=== PATIENT | male | born 1965 | race Caucasian/White ===

== ENCOUNTER 2017-08-11 15:30 | Outpatient (CLI) | payer BC, OTHER ==
[~2017-08-11] VITALS: Ht 182.9 cm; Wt 108.0 kg
[~2017-08-11 15:30] MED LIST: HYDR-2889 PO; LEVO125T6 PO
[2017-08-11] MEDS ORDERED: LEVO175T5 PO (15:41)
[2017-08-11 16:28] LABS: BASOPHILS % (AUTO) 0 % (0-10); EOSINOPHILS # (AUTO) 0.2 10^3/uL (0.0-0.3); EOSINOPHILS % (AUTO) 3 % (0-10); LYMPHOCYTES # (AUTO) 2.7 X 10^3 (1.0-4.0); LYMPHOCYTES % (AUTO) 40 % (12-44); MEAN CORPUSCULAR HEMOGLOBIN 31 PG (25-34); MEAN CORPUSCULAR HGB CONC 35 G/DL (32-36); MEAN CORPUSCULAR VOLUME 87 FL (80-99); MEAN PLATELET VOLUME 11.1 FL (7.4-10.4); MONOCYTES # (AUTO) 0.5 X 10^3 (0.0-1.0); MONOCYTES % (AUTO) 7 % (0-12); NEUTROPHILS # (AUTO) 3.2 X 10^3 (1.8-7.8); NEUTROPHILS % (AUTO) 49 % (42-75); PLATELET COUNT 206 10^3/uL (130-400); RED BLOOD COUNT 4.61 10^6/uL (4.35-5.85); RED CELL DISTRIBUTION WIDTH 12.9 % (10.0-14.5); WHITE BLOOD COUNT 6.6 10^3/uL (4.3-11.0)
[2017-08-11 16:29] VITALS: BP 148/89
--- NOTE | 2017-08-11 16:29 | Diagnostic Imaging Report ---
PA and lateral views of the chest Indication: Preoperative evaluation. Findings: The lungs are clear. The heart size is normal. There is no effusion or pneumothorax The mediastinum and kelsey appear unremarkable. Impression: Unremarkable study. Dictated by: Dictated on workstation # [id number]
[2017-08-11 16:39] LABS: BILIRUBIN,URINE NEGATIVE (NEGATIVE); KETONES,URINE NEGATIVE (NEGATIVE); LEUKOCYTE ESTERASE ,URINE NEGATIVE (NEGATIVE); NITRITE,URINE NEGATIVE (NEGATIVE); PH,URINE 5 (5-9); PROTEIN,URINE NEGATIVE (NEGATIVE); UROBILINOGEN,URINE NORMAL (NORMAL)
[2017-08-11 16:46] LABS: ALANINE AMINOTRANSFERASE 16 U/L (0-55); ALBUMIN 4.3 GM/DL (3.2-4.5); ANION GAP 8 MMOL/L (5-14); ASPARTATE AMINO TRANSFERASE 17 U/L (5-34); BILIRUBIN,TOTAL 0.4 MG/DL (0.1-1.0); BLOOD UREA NITROGEN 12 MG/DL (7-18); BUN/CREATININE RATIO 14; CARBON DIOXIDE 28 MMOL/L (21-32); CHLORIDE 104 MMOL/L (98-107); CREATININE SERUM 0.86 MG/DL (0.60-1.30); GFR ESTIMATED > 60; GLUCOSE 100 MG/DL (70-105); POTASSIUM 3.8 MMOL/L (3.6-5.0); SODIUM 140 MMOL/L (135-145); TOTAL PROTEIN 7.3 GM/DL (6.4-8.2)
[2017-08-11 17:00] LABS: SQUAMOUS EPITHELIAL CELL,UR RARE /HPF
[2017-08-11 17:24] LABS: ERYTHROCYTE SEDIMENTATION RATE 5 MM/HR (0-30)
== END 2017-08-11 16:25 | disposition home or self-care (01) ==
LOC: PREOP 15:30
PROVIDERS: ATTEND Orthopaedic Surgery
DX: Z01.818 Encounter for other preprocedural examination (principal); Z01.812 Encounter for preprocedural laboratory examination; M17.11 Unilateral primary osteoarthritis, right knee; R53.83 Other fatigue
CPT/HCPCS: 36415; 71020; 80053; 81000; 85025; 85610; 85652; 86850; 86900; 86901; 87081

== ENCOUNTER 2017-08-17 06:00 | Inpatient (IN) | payer BC, OTHER ==
--- NOTE | 2017-08-08 13:07 | HISTORY AND PHYSICAL ---
DATE OF SERVICE: ADMISSION HISTORY AND PHYSICAL DATE OF ADMISSION: 08/17/2017 LAST-FOUR SOCIAL SECURITY: 0582 REASON FOR ADMISSION: Inpatient admission on 08/17/2017 for right total knee arthroplasty. HISTORY OF PRESENT ILLNESS: The patient is a 51-year-old gentleman with known osteoarthritis of his right knee. He has undergone treatment with multiple arthroscopies as well as injections. He reports progressive loss of function and activities of daily living because of the knee. Radiographs reveal complete loss of medial and patellofemoral joint spaces and due to functional impairment and failure to improve with conservative measures, the patient has elected to proceed with surgical intervention. REVIEW OF SYSTEMS: No chest pain. No shortness of breath. No dysuria. PAST MEDICAL HISTORY: Hypothyroidism and osteoarthritis. PAST SURGICAL HISTORY: Arthroscopy and left rotator cuff repair. FAMILY HISTORY: Significant for diabetes and kidney disease. MEDICATIONS: Hydrocodone. PRIMARY CARE PROVIDER: ____. ADDITIONAL MEDICATIONS: Levothyroxine. ALLERGIES: No known drug allergies. SOCIAL HISTORY: The patient is a former smoker. Denies alcohol use. PHYSICAL EXAMINATION: GENERAL: The patient is well developed, well-nourished, in no acute distress. HEENT: Normocephalic, atraumatic. Pupils are equal, round, reactive to light. Oropharynx is clear. NECK: Supple. No lymphadenopathy. LUNGS: Clear to auscultation bilaterally. HEART: Regular rate and rhythm. ABDOMEN: Soft, nontender, nondistended. EXTREMITIES: The right knee demonstrates a slight effusion. There is no erythema or warmth. No skin lesions are noted. Range of motion 0/3/130 with no varus valgus laxity. Negative anterior and posterior drawer. The patient ambulates with an antalgic gait. RADIOGRAPHS: As above. IMPRESSION: Right knee osteoarthritis, unresponsive to conservative measures. PLAN: Right total knee arthroplasty. The risks, benefits, options, ramifications and recovery have been discussed at length with the patient. He understands and wishes to proceed. Job ID: [id number] DocumentID: [id number] Dictated Date: 08/08/2017 11:21:31 Pump Rebuilder Date: 08/08/2017 11:52:33 Dictated By: EFRAIN JUAREZ MD
[~2017-08-17] VITALS: Ht 182.9 cm; Wt 108.0 kg
[~2017-08-17 06:00] MED LIST changes: +LEVO175T5 PO
--- OUTSIDE RECORDS SUMMARY | 2017-08-17 06:26 | XMS REPORT | Continuity of Care Document ---
Author Author [facility] Organization [facility] Address Unknown Phone Unavailable Allergies Active Description Code Type Severity Reaction Onset Reported/Identified Relationship to Patient Clinical Status Yes No Known Drug Allergies [id number] Drug Allergy Unknown N/A 03/29/2013 Medications There is no data. Problems Date Dx Coded Attending Type Code Diagnosis Diagnosed By 03/29/2013 MARCELLA CASTELLON MD Ot 276.51 DEHYDRATION 03/29/2013 MARCELLA CASTELLON MD Ot 593.9 RENAL URETERAL DIS NOS 03/29/2013 MARCELLA CASTELLON MD Ot 729.82 CRAMP IN LIMB Procedures There is no data. Results Test Result Range Complete blood count (CBC) with automated white blood cell (WBC) differential - 08/11/17 16:00 Blood leukocytes automated count (number/volume) 6.6 10*3/uL 4.3-11.0 Blood erythrocytes automated count (number/volume) 4.61 10*6/uL 4.35-5.85 Venous blood hemoglobin measurement (mass/volume) 14.2 g/dL 13.3-17.7 Blood hematocrit (volume fraction) 40 % 40-54 Automated erythrocyte mean corpuscular volume 87 [foz_us] 80-99 Automated erythrocyte mean corpuscular hemoglobin (mass per erythrocyte) 31 pg 25-34 Automated erythrocyte mean corpuscular hemoglobin concentration measurement ( mass/volume) 35 g/dL 32-36 Automated erythrocyte distribution width ratio 12.9 % 10.0-14.5 Automated blood platelet count (count/volume) 206 10*3/uL 130-400 Automated blood platelet mean volume measurement 11.1 [foz_us] 7.4-10.4 Automated blood neutrophils/100 leukocytes 49 % 42-75 Automated blood lymphocytes/100 leukocytes 40 % 12-44 Blood monocytes/100 leukocytes 7 % 0-12 Automated blood eosinophils/100 leukocytes 3 % 0-10 Automated blood basophils/100 leukocytes 0 % 0-10 Blood neutrophils automated count (number/volume) 3.2 10*3 1.8-7.8 Blood lymphocytes automated count (number/volume) 2.7 10*3 1.0-4.0 Blood monocytes automated count (number/volume) 0.5 10*3 0.0-1.0 Automated eosinophil count 0.2 10*3/uL 0.0-0.3 Automated blood basophil count (count/volume) 0.0 10*3/uL 0.0-0.1 PT panel in platelet poor plasma by coagulation assay - 08/11/17 16:00 Prothrombin time (PT) in platelet poor plasma by coagulation assay 13.0 s 12.2-14.7 INR in platelet poor plasma or blood by coagulation assay 1.0 0.8-1.4 Comprehensive metabolic panel - 08/11/17 16:00 Serum or plasma sodium measurement (moles/volume) 140 mmol/L 135-145 Serum or plasma potassium measurement (moles/volume) 3.8 mmol/L 3.6-5.0 Serum or plasma chloride measurement (moles/volume) 104 mmol/L 98-107 Carbon dioxide 28 mmol/L 21-32 Serum or plasma anion gap determination (moles/volume) 8 mmol/L 5-14 Serum or plasma urea nitrogen measurement (mass/volume) 12 mg/dL 7-18 Serum or plasma creatinine measurement (mass/volume) 0.86 mg/dL 0.60-1.30 Serum or plasma urea nitrogen/creatinine mass ratio 14 NRG Serum or plasma creatinine measurement with calculation of estimated glomerular filtration rate > NRG Serum or plasma glucose measurement (mass/volume) 100 mg/dL 70-105 Serum or plasma calcium measurement (mass/volume) 9.0 mg/dL 8.5-10.1 Serum or plasma total bilirubin measurement (mass/volume) 0.4 mg/dL 0.1-1.0 Serum or plasma alkaline phosphatase measurement (enzymatic activity/volume) 85 U/L 40-136 Serum or plasma aspartate aminotransferase measurement (enzymatic activity/ volume) 17 U/L 5-34 Serum or plasma alanine aminotransferase measurement (enzymatic activity/volume ) 16 U/L 0-55 Serum or plasma protein measurement (mass/volume) 7.3 g/dL 6.4-8.2 Serum or plasma albumin measurement (mass/volume) 4.3 g/dL 3.2-4.5 Erythrocyte sedimentation rate by westergren method - 08/11/17 16:00 Erythrocyte sedimentation rate by westergren method 5 mm 0-30 Blood type T Indirect antibody screen panel - 08/11/17 16:00 ABO+Rh group OP NRG Blood group antibody screen NEGATIVE NRG Methicillin resistant Staphylococcus aureus (MRSA) screening culture - 16:00 Methicillin resistant Staphylococcus aureus (MRSA) screening culture NEG NRG Complete urinalysis with reflex to culture - 08/11/17 16:15 Urine color determination YELLOW NRG Urine clarity determination CLEAR NRG Urine pH measurement by test strip 5 5-9 Specific gravity of urine by test strip 1.025 1.016- 1.022 Urine protein assay by test strip, semi-quantitative NEGATIVE NEGATIVE Urine glucose detection by automated test strip NEGATIVE NEGATIVE Erythrocytes detection in urine sediment by light microscopy NEGATIVE NEGATIVE Urine ketones detection by automated test strip NEGATIVE NEGATIVE Urine nitrite detection by test strip NEGATIVE NEGATIVE Urine total bilirubin detection by test strip NEGATIVE NEGATIVE Urine urobilinogen measurement by automated test strip (mass/volume) NORMAL NORMAL Urine leukocyte esterase detection by dipstick NEGATIVE NEGATIVE Automated urine sediment erythrocyte count by microscopy (number/high power field) NONE NRG Automated urine sediment leukocyte count by microscopy (number/high power field ) NONE NRG Bacteria detection in urine sediment by light microscopy NONE NRG Squamous epithelial cells detection in urine sediment by light microscopy RARE NRG Crystals detection in urine sediment by light microscopy NONE NRG Casts detection in urine sediment by light microscopy NONE NRG Mucus detection in urine sediment by light microscopy NEGATIVE NRG Complete urinalysis with reflex to culture NO NRG Encounters ACCT No. Visit Date/Time Discharge Status Pt. Type Provider Facility Loc./Unit Complaint [id number] 08/11/2017 15:30:00 08/11/2017 16:25:00 DIS Outpatient EFRAIN JUAREZ MD [facility] PREOP RIGHT KNEE OSTEOARTHRITIS [id number] 03/29/2013 18:43:00 03/29/2013 21:34:00 DIS Emergency MARCELLA CASTELLON MD [facility] ER WEAKNESS,MUSCLE CRAMPS [id number] 08/17/2017 06:00:00 ACT Inpatient EFRAIN JUAREZ MD [facility] SURG RIGHT KNEE OSTEOARTHRITIS
[2017-08-17] MEDS ORDERED: CEFUROXIME 1.5 GM (ZINACEF) VIAL ONE (06:40)
[2017-08-17] MEDS ORDERED: NS (IVPB) 50 ML ONE (06:40)
[2017-08-17] MEDS ORDERED: LACTATED RINGERS 1,000 ML IV PRN (06:54)
[2017-08-17] MEDS ORDERED: PROPOFOL INJECTION 50 ML IV ONE (06:58)
[2017-08-17] MEDS ORDERED: morphine PF (DURAMORPH) 10 MG/10 ML AMP ONE (06:58)
[2017-08-17] MEDS ORDERED: fentaNYL INJECTION 100 MCG/2 ML AMP ONE (06:59)
[2017-08-17] MEDS ORDERED: MIDAZOLAM 2 MG/2 ML (VERSED) VIAL ONE (06:59)
[2017-08-17] MEDS ORDERED: CEFUROXIME INJECTION 1,500 MG in NS (IVPB) 50 ML IV ONE (07:00)
[2017-08-17 07:18] VITALS: BP 129/86
--- NOTE | 2017-08-17 07:29 | Progress Note-Pre Operative ---
Pre-Operative Progress Note H&P Reviewed The H&P was reviewed, patient examined and no changes noted. Date Seen by Provider: Aug 17, 2017 Time Seen by Provider: 07:15 Date H&P Reviewed: Aug 17, 2017 Time H&P Reviewed: 07:29 Pre-Operative Diagnosis: right knee primary osteoarthritis EFRAIN JUAREZ MD Aug 17, 2017 07:29
[2017-08-17] MEDS ORDERED: diphenhydrAMINE 50 MG/ML INJ (BENADRYL) IVP PRN (07:30)
[2017-08-17] MEDS ORDERED: ONDANSETRON 4 MG/2 ML (SDV) Z0FRAN IVP PRN (07:30)
--- NOTE | 2017-08-17 07:30 | Progress Note-Post Operative ---
Post-Operative Progess Note Surgeon (s)/Commissioning Editor (s) Surgeon EFRAIN JUAREZ MD Commissioning Editor: Freddy Lord Pre-Operative Diagnosis right knee primary osteoarthritis Post-Operative Diagnosis right knee primary osteoarthritis Procedure & Operative Findings Date of Procedure 08/17/17 Procedure Performed/Findings right total knee arthroplasty Anesthesia Type spinal Estimated Blood Loss Estimated blood loss (mL): minimal Specimens/Packing Specimens Removed none Packing: none EFRAIN JUAREZ MD Aug 17, 2017 07:30
[2017-08-17] MEDS ORDERED: OXYC-197 PO (07:31)
--- NOTE | 2017-08-17 07:34 | D/C HH Face to Face Order ---
D/C Face to Face Orders Instructions for Patient Patient Instructions/FollowUp: three weeks Physician to follow Patient: in 3 weeks Discharge Diet for Home: No Restrictions, Regular Diet Patient Data-Allergies,Ht & Wt Patient Allergies: Coded Allergies: No Known Drug Allergies (Unverified , 03/29/13) Height (Feet): 6 Height (Inches): 0.00 Weight (Pounds): 238 Weight (Ounces): 0.0 Home Health Need/Face to Face Date of Face to Face: Aug 17, 2017 Clinical Findings: Generalized weakness and fatigue, Muscle weakness, Non or partial weight bearing, Pain with ambulation, Unsteady gait I have seen Pt [id number]: Yes Discharged To: Home Diagnosis/Conditions: right total knee arthroplasty Problems/Diagnosis/Condition: Patient is Homebound due to: Pain w/ambulation Homebound Status Due to the above stated illness, injury or surgical procedure (medical condition or diagnosis) and associated clinical findings, the patient is homebound because of his/her inability to leave home except with aid of a supportive device and/or person AND leaving the home requires a considerable and taxing effort or is medically contraindicated. Pt req the following assistanc: Walker Home Health Nursing Orders Home Health Services Order: Physical Therapy-Evaluate & Treat Home Health Infusion Therapy Line Start Date: Aug 17, 2017 Line Start Time: 0630 Site Location: Hand Therapy Orders Therapy Orders: Physical Therapy Therapy Specific Orders: Eval assistive deivces, Teach enviro modifications/ safety, Gait training, Increase strength/endurance, Restore ROM Certify Stmt I certify that this patient is under my care and that I, a nurse practitioner or a physician; a assistant guest services manager working with me, had a face to face encounter that - meets the physician face to face encounter requirements with this patient as dated. EFRAIN JUAREZ MD Aug 17, 2017 07:33
[2017-08-17] MEDS ORDERED: INTRA-ARTICULAR IU ONE ×5 (07:45)
--- NOTE | 2017-08-17 09:54 | Diagnostic Imaging Report ---
2 views of the right knee. Indication: post total knee arthroplasty Findings: There is femoral and tibial prosthesis with patellar resurfacing and prosthesis seen. Anterior soft tissue post-operative changes are noted with anterior skin fortino seen. Impression: Baseline post right total knee arthroplasty in good alignment. Dictated by: Dictated on workstation # [id number]
[2017-08-17 10:25] VITALS: BP 133/72
[2017-08-17] MEDS: NS IV 1000 ML 1,000 ML IV SCH ×2 (10:45→21:08)
[2017-08-17] MEDS: morphine PCA 30 MG/30 ML VIAL IV PRN (10:48)
[2017-08-17] MEDS: SENNA W/DOCUSATE (SENOKOT S) TABLET PO SCH ×2 (11:35→21:07)
[2017-08-17 12:00] VITALS: BP 136/79
--- NOTE | 2017-08-17 12:16 | Progress Note-Standard ---
Standard Progress Note Progress Notes/Assess & Plan Date Seen by Provider: Aug 17, 2017 Time Seen by Provider: 12:04 Progress/Assessment & Plan Post op check Patient comfortable radiographs--HW well positioned. no fractures RLE-- 2 plus DP pulse with brisk cap refill. Intact DF and PF of toes and ankle. Sensation intact to light touch distally s/p RTKA doing well mobilize as able EFRAIN JUAREZ MD Aug 17, 2017 12:16
--- NOTE | 2017-08-17 13:55 | Physical Therapy Evaluation ---
PT Evaluation-General Medical Diagnosis Admission Date Aug 17, 2017 at 06:00 Medical Diagnosis: right TKA Onset Date: Aug 17, 2017 Therapy Diagnosis Therapy Diagnosis: impaired mobility, strength, ROM Height/Weight Height (Feet): 6 Height (Inches): 0.00 Weight (Pounds): 238 Weight (Ounces): 0.0 Precautions Precautions/Isolations: Standard Precautions Weight Bear Status Right Lower Extremity: Right Weight Bearing/Tolerated Referral Physician: Freddy Lord Reason for Referral: Evaluation/Treatment Medical History Pertinent Medical History: Hypothroidism, OA Additional Medical History surg (left RCR, arthroscopy) Current History elective, OA right knee, has undergone multiple arthroscopies and injections) Reviewed History: Yes Social History Home: Single Level Current Living Status: Entry Into Home: Stairs Without Railing PT Steps Into Home: 2 Patient will be living with his son and other family Prior/Core FIM Prior Level of Function Functional [place] Measure 0=Not Assessed/NA 4=Minimal Assistance 1=Total Assistance 5=Supervision or Setup 2=Maximal Assistance 6=Modified [place] 3=Moderate Assistance 7=Complete [place] Bed Mobility: 7 Transfers (B,C,W/C) (FIM): 7 Gait: 7 PT Evaluation-Current Subjective Patient in bed pre tx, has pain of 1/10 in right knee. Pt/Family Goals to be independent at home Objective Patient Orientation: Normal For Age Attachments: Polar Pack, IV ROM/Strength ROM Lower Extremities right knee flexion 85 degrees, extension +2 degrees Strength Lower Extremities NT Sensory Vision: Functional Hearing: Functional Sensation Right Lower Extremit: Intact Sensation Left Lower Extremity: Intact Sensation Lower Extremities Patient has intact light touch sensation in the right lower extremity, no complaints of numbness or tingling. Transfers Functional [place] Measure 0=Not Assessed/NA 4=Minimal Assistance 1=Total Assistance 5=Supervision or Setup 2=Maximal Assistance 6=Modified [place] 3=Moderate Assistance 7=Complete [place] Transfers (B, C, W/C) (FIM): 4 Scootin Rollin Supine to/from Sit: 5 Sit to/from Stand: 4 (CGA) Gait Mode of Locomotion: Walk Anticipated Mode of Locomotion: Walk Gait (FIM): 4 Distance: 300' Gait Level of Assist: 4 Gait Persons Needed: 1 Gait Assistive Device: FWW Comments/Gait Description Patient can ambulate 300' with CGA with a rolling walker, he has good reciprocal gait with good heel strike but has a slightly flexed right knee. Balance Sitting Static: Normal Sitting Dynamic: Normal Standing Static: Good Standing Dynamic: Good Treatment RLE total knee exercises x10 (AP, QS, HS, SAQ, SLR) Assessment/Needs Patient has impaired mobility, strength, ROM post right TKA. Rehab Potential: Fair PT Short Term Goals Short Term Goals Time Frame: Aug 24, 2017 Transfers (B,C,W/C) (FIM): 6 Gait (FIM): 5 Gait Distance Comment: 500' Gait Level of Assist: 5 Gait Assistive Device: FWW PT Plan Problem List Problem List: Activity Tolerance, Functional Strength, Safety, Balance, Gait, Transfer, Bed Mobility, ROM Treatment/Plan Treatment Plan: Continue Plan of Care Treatment Plan: Bed Mobility, Education, Functional Activity Km, Functional Strength, Gait, Safety, Therapeutic Exercise, Transfers Treatment Duration: Aug 24, 2017 Frequency: 11 times per week Estimated Hrs Per Day: .25 hour per day (15-30') Patient and/or Family Agrees t: Yes Safety Risks/Education Patient Education: Gait Training, Transfer Techniques, Reviewed Precautions, Reviewed Use of Ice, Correct Positioning, Disease Process, Safety Issues Teaching Recipient: Patient Teaching Methods: Demonstration, Discussion Response to Teaching: Reinforcement Needed Discharge Recommendations Plan Patient will perform bed mobility and transfer training, balance and endurance training, functional strengthening, stair training, gait training, and education , to improve functional mobility and independence at home. Therapy D/C Recommendations: Home w/ Family Support Time/GCodes Time In: 1310 Time Out: 1338 Total Billed Treatment Time: 28 Total Billed Treatment 1 visit EVL 15' GT 13' CAROLINE IBARRA PT Aug 17, 2017 13:55
[2017-08-17] MEDS: CEFUROXIME INJECTION 750 MG in NS (IVPB) 50 ML IV SCH ×2 (15:31→23:32)
[2017-08-17 16:00] VITALS: BP 126/61
--- NOTE | 2017-08-17 17:53 | OPERATIVE REPORT ---
DATE OF SERVICE: 08/17/2017 PREOPERATIVE DIAGNOSIS: Right knee primary osteoarthritis. POSTOPERATIVE DIAGNOSIS: Right knee primary osteoarthritis. PROCEDURE: Right total knee arthroplasty. SURGEON: Dion Rodríguez MD GLUE DRIER OPERATOR: Freddy Lord, who assisted throughout the procedure and closed the incision. ANESTHESIA: Spinal by Parmjit Chaparro CRNA. TOURNIQUET TIME: Approximately 70 minutes at 300 mmHg. ESTIMATED BLOOD LOSS: Minimal. DRAINS: None. COMPLICATIONS: None. POSTOPERATIVE PLAN: Routine total knee arthroplasty protocol. MATERIALS: MicroPort cemented sites 6 femur cemented size 6 tibia with a 10 mm insert and cemented size 35 patella. The patient was transferred to the recovery room awake and stable condition. STATEMENT OF MEDICAL NECESSITY: The patient is a 51-year-old gentleman with longstanding progressive right knee pain. He has undergone treatment with multiple injections as well as multiple arthroscopies, but has had progressive loss of function. He had known grade IV changes throughout all three compartments. Due to functional impairment and failure to improve with conservative measures, the patient elected to proceed with total knee arthroplasty. DESCRIPTION OF PROCEDURE: After risks and benefits of the procedure were discussed and questions were answered and informed consent was signed and placed on the chart. The operative site was confirmed preoperatively initialed by the surgeon. The patient then transported to the operating room and after adequate levels of regional anesthetic were obtained, a timeout was called confirming the operative site. The right lower extremity was then prepped and draped in usual sterile fashion with the leg elevated and the knee flexed, tourniquet inflated to 300 mmHg. Standard anterior approach was utilized. Hemostasis was obtained with cautery. A subperiosteal release was performed of the proximal medial tibia with curved osteotome. The ACL was resected and a portion of the fat pad was resected as well. The intramedullary guide was passed into the femur and the distal cutting block was placed. The distal cut was made and the femur was sized to a size 6. The 6 cutting block was placed parallel to the epicondylar axis and cuts were made from posterior to anterior. A subperiosteal release was then carefully performed on the posterior distal femur, being careful to stay on the bony surface. Attention was then turned to the tibia. The intramedullary guide was passed into the femur. The cutting block was placed. The drop christina transected the intermalleolar axis and the cut was made. A 6 cutting block was placed and again the drop christina transected the intermalleolar axis. This was then prepared with the drill and keel punch. The femoral trial was placed and the trochlear cut was made. The trials were inserted. The patella was prepared using the free hand technique by resecting 10 mm off the undersurface. The peg guide was placed and the peg holes were drilled. The 35 button was placed and the knee was taken through a range of motion. Full extension was easily obtained and 130 degrees of flexion with gravity was easily obtained. The patella tracked well. There was no anterior/posterior or medial/lateral laxity in flexion or extension. The trials were removed. The joint was irrigated with pulse lavage. Periarticular block was placed in the posterior capsule, medial and lateral retinaculum, extensor mechanism and subcutaneous tissues. The joint was further irrigated. The bone ends were irrigated and dried. The tibial baseplate was cemented into position. Excess of cement was removed. The superior surface was irrigated and dried. The polyethylene insert was placed. The distal femur was irrigated and dried and the femoral prosthesis was cemented in position and excess of cement was removed. The knee was brought in full extension until the cement had cured. The undersurface of the patella was irrigated and dried and the patellar button was cemented into position removing excess of cement. Once the cement had cured, the knee was taken through range of motion. Full extension was easily obtained and 130 degrees of flexion with gravity was easily obtained. The patella tracked well. There is no anterior/posterior or medial/lateral laxity in flexion or extension. The joint was further irrigated with pulse lavage. The arthrotomy was closed with a #2 [place] in [id number] interrupted fashion. The knee was then flexed and under tension at the repair site, the wound was further irrigated using total of 6 liters of pulse lavage throughout the procedure. A 0 Vicryl was used for deep subcutaneous tissue, 2-0 Vicryl for the superficial subcutaneous tissue, fortino used on skin. A soft dressing was applied. The tourniquet was deflated. The patient transported to the recovery room in awake and stable condition. Job ID: [id number] DocumentID: [id number] Dictated Date: 08/17/2017 09:19:30 Maintenance Truck Driver Date: 08/17/2017 17:52:19 Dictated By: DION RODRÍGUEZ MD
--- NOTE | 2017-08-17 19:12 | Consultation ---
History of Present Illness History of Present Illness Patient Consulted On(gi/time) 08/17/17 19:08 Date Seen by Provider: Aug 17, 2017 Time Seen by Provider: 17:15 History of Present Illness 51-year-old male admitted under orthopedic service for right kn. Patient had procedure performed in them environmental marketer of August 17, 2017. He is on home medication levothyroxine. His blood pressure also has been monitored outpatient. Apparently there was no issues with blood pressure during the course of his surgery. Allergies and Home Medications Allergies Coded Allergies: No Known Drug Allergies (Unverified , 03/29/13) Home Medications Levothyroxine Sodium 175 Mcg Tablet, 175 MCG PO DAILY PRN, (Reported) Oxycodone HCl/Acetaminophen 1 Each Tablet, 1 EACH PO Q4H, #60 Prescribed by: EFRAIN JUAREZ on 08/17/17 0731 Past Yiekams-Ssktjd-Upcjtb Hx Patient Social History Alcohol Use: Rarely Uses Number of Drinks Today: 0 Recreational Drug Use: No Smoking Status: Former Smoker Type Used: Cigarettes Former Smoker, Quit: Aug 23, 2016 Recent Foreign Travel: No Contact w/Someone Who Travel: No Recent Infectious Disease Expo: No Recent Hopitalizations: No Immunizations Up To Date Date of Influenza Vaccine: May 30, 2017 Seasonal Allergies Seasonal Allergies: No Surgeries History of Surgeries: Yes (RT KNEE SCOPE x2, LT KNEE SCOPE, LT SHOULDER SX) Respiratory History of Respiratory Disorde: No Cardiovascular History of Cardiac Disorders: No Neurological History of Neurological Disord: No Genitourinary History of Genitourinary Disor: No Gastrointestinal History of Gastrointestinal Di: No Musculoskeletal History of Musculoskeletal Dis: Yes (CHRONIC KNEE PAIN) Musculoskeletal Disorders: Arthritis Endocrine History of Endocrine Disorders: Yes Endocrine Disorders: Hypothyroidsim HEENT History of HEENT Disorders: No Loss of Vision: Denies Hearing Impairment: Denies Cancer History of Cancer: No Psychosocial History of Psychiatric Problem: No Integumentary History of Skin or Integumenta: No Blood Transfusions History of Blood Disorders: No Family Medical History Significant Family History: Diabetes Family Medial History: Diabetes mellitus 19 MOTHER Hypertension 19 FATHER Review of Systems-General Constitutional: see HPI Physical Exam-General Problems Physical Exam Vital Signs Vital Sign - Last 12Hours 08/17/17 07:18 Temp 97.8 Pulse 50 Resp 16 B/P (MAP) 129/86 (100) Pulse Ox 98 O2 Delivery Room Air Capillary Refill : General Appearance: no apparent distress HEENT: pharynx normal Neck: non-tender, full range of motion Respiratory: lungs clear Cardiovascular: regular rate, rhythm Extremities: other (noted right knee brace with postsurgical quipment as well) Assessment/Plan Assessment/Plan Admission Diagnosis/Plan 1. Status post right knee replacement -patient is under the care of Dr. Juarez 2. Hypothyroidism -Will ensure patient is started back on levothyroxine. -we'll also continue to monitor his blood pressure. -Thank you for consultation and we'll follow along with you. Clinical Quality Measures DVT/VTE Risk/Contraindication: Risk Factor Score Per Nursin RFS Level Per Nursing on Admit: 4+=Very High SARAH FREY MD Aug 17, 2017 19:12
[2017-08-17 20:23] VITALS: BP 128/60
[2017-08-18] VITALS: BP 118/59
[2017-08-18 04:15] VITALS: BP 152/68
[2017-08-18] MEDS: LEVOTHYROXINE 150 MCG (LEVOTHROID) TAB PO SCH (06:04)
[2017-08-18] MEDS: MULTIVIT W/MINERALS TAB (THERAGRAN M) PO SCH (06:04)
[2017-08-18] MEDS: NS IV 1000 ML 1,000 ML IV SCH ×2 (07:45→18:24)
[2017-08-18] MEDS: SENNA W/DOCUSATE (SENOKOT S) TABLET PO SCH ×2 (07:45→19:42)
--- NOTE | 2017-08-18 07:45 | Progress Note-Standard ---
Standard Progress Note Progress Notes/Assess & Plan Date Seen by Provider: Aug 18, 2017 Time Seen by Provider: 07:44 Progress/Assessment & Plan Post op check Patient comfortable radiographs--HW well positioned. no fractures RLE-- 2 plus DP pulse with brisk cap refill. Intact DF and PF of toes and ankle. Sensation intact to light touch distally s/p RTKA doing well mobilize as able Final Diagnosis No complaints Vital Signs Date Time Temp Pulse Resp B/P (MAP) Pulse Ox O2 Delivery O2 Flow Rate FiO2 08/18/17 04:15 99.5 72 18 152/68 (96) 95 Room Air 08/18/17 00:00 99.1 73 18 118/59 (78) 96 Room Air 08/17/17 20:23 100.2 70 20 128/60 (82) 92 Room Air 08/17/17 16:03 Room Air 08/17/17 16:00 98.6 65 20 126/61 (82) 94 Room Air 08/17/17 12:00 97.8 55 20 136/79 (98) 98 Room Air 08/17/17 10:25 96.8 50 20 133/72 (92) 96 Room Air I & O 08/18/17 06:59 Intake Total 4710 ml Balance 4710 ml Laboratory Tests Test 08/18/17 06:09 Range/Units Hemoglobin 11.8 L 13.3-17.7 G/DL Hematocrit 34 L 40-54 % RLE--dressing intact. Flexion 70 deg. Neg [place]. NVI distally s/p RTKA continue PT/OT EFRAIN JUAREZ MD Aug 18, 2017 07:45
[2017-08-18] MEDS: ASPIRIN E.C. 81 MG (ECOTRIN) TAB PO SCH ×2 (07:46→08:25)
[2017-08-18] MEDS: ENOXAPARIN 30 MG/0.3 ML (LOVENOX) SYR SC SCH ×2 (07:46→19:42)
[2017-08-18] MEDS: oxyCODONE/APAP 5/325MG (PERCOCET 5) TABLET PO PRN ×3 (07:46→21:27)
[2017-08-18 08:00] VITALS: BP 131/78
--- NOTE | 2017-08-18 08:05 | Progress Note (SOAP) ---
Subjective Date Seen by Provider: Aug 18, 2017 Time Seen by Provider: 07:50 Subjective/Events-last exam Blood pressure stable. He admits having a different knee pain today and possibly caused his bp up a little. Otherwise he reports doing very well regarding his knee surgery and recover. Objective Exam Vital Signs Date Time Temp Pulse Resp B/P (MAP) Pulse Ox O2 Delivery O2 Flow Rate FiO2 08/18/17 04:15 99.5 72 18 152/68 (96) 95 Room Air 08/18/17 00:00 99.1 73 18 118/59 (78) 96 Room Air 08/17/17 20:23 100.2 70 20 128/60 (82) 92 Room Air 08/17/17 16:03 Room Air 08/17/17 16:00 98.6 65 20 126/61 (82) 94 Room Air 08/17/17 12:00 97.8 55 20 136/79 (98) 98 Room Air 08/17/17 10:25 96.8 50 20 133/72 (92) 96 Room Air I & O 08/18/17 07:00 Intake Total 4710 ml Balance 4710 ml Capillary Refill : General Appearance: No Apparent Distress Respiratory: Lungs Clear Cardiovascular: Regular Rate, Rhythm Results Lab Laboratory Tests 08/18/17 06:09: Hemoglobin 11.8L, Hematocrit 34L Assessment/Plan Assessment/Plan Assess & Plan/Chief Complaint 1. Status post right knee replacement -patient is under the care of Dr. Rodríguez 2. Hypothyroidism -Will ensure patient is started back on levothyroxine. -we'll also continue to monitor his blood pressure. -Thank you for consultation and we'll follow along with you. 08/18 levothyroxine restarted 3. Isolated increased bp -suspect pain related -continue to monitor Clinical Quality Measures DVT/VTE Risk/Contraindication: Risk Factor Score Per Nursin RFS Level Per Nursing on Admit: 4+=Very High SARAH FREY MD Aug 18, 2017 08:05
[2017-08-18] MEDS: morphine PCA 30 MG/30 ML VIAL IV PRN ×2 (08:55→21:35)
--- NOTE | 2017-08-18 10:01 | Physical Therapy Daily Note ---
PT Daily Note-Current Subjective Patient reports increase c/o right knee pain due to block is wearing off. Pain Numeric Pain Scale: 8 Location: Right Location Body Site: Knee Pain Description: Acute Comment: pain medication has been issued Mental Status Patient Orientation: Normal For Age Attachments: IV Transfers Functional [place] Measure 0=Not Assessed/NA 4=Minimal Assistance 1=Total Assistance 5=Supervision or Setup 2=Maximal Assistance 6=Modified [place] 3=Moderate Assistance 7=Complete IndependenceIRFPAI Quality Coding Scale 6 Independent with activity with or without an assistive device 5 Patient requires set up or clean up by helper. Patient completes activity by themselves 4 Supervision or touching assist (CGA). [place] provide cues , steadying assist 3 The helper provides less than half the effort to complete the activity 2 The helper provides more than half the effort to complete the activity 1 Dependent. The helper does all the effort to complete an activity 7 Patient refused to complete or attempt activity 9 The patient did not perform the activity before the current illness or injury 88 Not attempted due to Medical conditions or safety concerns Transfers (B, C, W/C) (FIM): 6 Scootin Rollin Supine to/from Sit: 6 Sit to/from Stand: 6 Weight Bearing Right Lower Extremity: Right Weight Bearing/Tolerated Gait Training Gait (FIM): 6 Distance (FIM): 3=150 ft Distance: 400' Gait Level of Assist: 6 Gait Assistive Device: FWW antalgic, functional gait sequence Exercises Supine Ex: Ankle pumps, Quad Set, Heel Slides, Straight leg raise Supine Reps: 15 Seated Therapy Exercises: Ankle pumps, Long arc quads Seated Reps: 15 Treatments CPM 0-76 degrees with polar pack in place Assessment Current Status: Excellent Progress Education with patient on pain block and increase c/o right knee pain. Patient voices understanding. PT to increase activity as tolerated by patient. PT Short Term Goals Short Term Goals Time Frame: Aug 24, 2017 Transfers (B,C,W/C) (FIM): 6 Gait (FIM): 5 Gait Distance Comment: 500' Gait Level of Assist: 5 Gait Assistive Device: FWW PT Plan Treatment/Plan Treatment Plan: Continue Plan of Care Treatment Plan: Bed Mobility, Education, Functional Activity Km, Functional Strength, Gait, Safety, Therapeutic Exercise, Transfers Treatment Duration: Aug 24, 2017 Frequency: 11 times per week Estimated Hrs Per Day: .25 hour per day (15-30') Patient and/or Family Agrees t: Yes Time/GCodes Time In: 920 Time Out: 945 Total Billed Treatment Time: 25 Total Billed Treatment 1 visit EX 20 min GT 15 min ALESHIA OBRIEN PT Aug 18, 2017 10:01
[2017-08-18 11:28] VITALS: BP 159/71
--- NOTE | 2017-08-18 13:27 | Anesthesia-General Post-Op ---
General Patient Condition Mental Status/LOC: Same as Preop Cardiovascular: Satisfactory Nausea/Vomiting: Absent Respiratory: Satisfactory Pain: Controlled Complications: Absent Post Op Complications Complications None Follow Up Care/Instructions Patient Instructions None needed. Anesthesia/Patient Condition Patient Condition Patient is doing well, no complaints, stable vital signs, no apparent adverse anesthesia problems. No complications reported per nursing. NORAH KNOX CRNA Aug 18, 2017 13:27
--- NOTE | 2017-08-18 13:28 | Anesthesia-Regional Post-Op ---
Regional Patient Condition Mental Status: Alert, Oriented x3 Circulation: Same as Pre-Op Headache: Absent Sensation: Full Recovery Motor Block: Absent Post Op Complications Complications None Follow Up Care/Instructions Patient Instructions None needed. Anesthesia/Patient Condition Patient is doing well, no complaints, stable vital signs, no apparent adverse anesthesia problems. No complications reported per nursing. NORAH KNOX CRNA Aug 18, 2017 13:28
--- NOTE | 2017-08-18 15:02 | Physical Therapy Daily Note ---
PT Daily Note-Current Subjective Patient agrees to PT. Patient continues to c/o right knee pain 10/10 Pain Numeric Pain Scale: 10-Worst Possible Pain Location: Right Location Body Site: Knee Pain Description: Acute Mental Status Patient Orientation: Normal For Age Attachments: IV Transfers Functional [place] Measure 0=Not Assessed/NA 4=Minimal Assistance 1=Total Assistance 5=Supervision or Setup 2=Maximal Assistance 6=Modified [place] 3=Moderate Assistance 7=Complete IndependenceIRFPAI Quality Coding Scale 6 Independent with activity with or without an assistive device 5 Patient requires set up or clean up by helper. Patient completes activity by themselves 4 Supervision or touching assist (CGA). [place] provide cues , steadying assist 3 The helper provides less than half the effort to complete the activity 2 The helper provides more than half the effort to complete the activity 1 Dependent. The helper does all the effort to complete an activity 7 Patient refused to complete or attempt activity 9 The patient did not perform the activity before the current illness or injury 88 Not attempted due to Medical conditions or safety concerns Transfers (B, C, W/C) (FIM): 6 Scootin Supine to/from Sit: 6 Sit to/from Stand: 6 Weight Bearing Right Lower Extremity: Right Weight Bearing/Tolerated Gait Training Gait (FIM): 6 Distance (FIM): 3=150 ft Distance: 450' Gait Level of Assist: 6 Gait Assistive Device: FWW antalgic, functional Exercises Supine Ex: Ankle pumps, Quad Set Supine Reps: 15 Seated Therapy Exercises: Long arc quads Seated Reps: 25 Standing: Heel/toe raises Standing Reps: 20 Assessment Current Status: Excellent Progress Patient tolerated treatment well and is up in recliner with needs met. PT Short Term Goals Short Term Goals Time Frame: Aug 24, 2017 Transfers (B,C,W/C) (FIM): 6 Gait (FIM): 5 Gait Distance Comment: 500' Gait Level of Assist: 5 Gait Assistive Device: FWW PT Plan Treatment/Plan Treatment Plan: Continue Plan of Care Treatment Plan: Bed Mobility, Education, Functional Activity Km, Functional Strength, Gait, Safety, Therapeutic Exercise, Transfers Treatment Duration: Aug 24, 2017 Frequency: 11 times per week Estimated Hrs Per Day: .25 hour per day (15-30') Patient and/or Family Agrees t: Yes Time/GCodes Time In: 1430 Time Out: 1445 Total Billed Treatment Time: 15 Total Billed Treatment 1 visit FA 15 min ALESHIA OBRIEN PT Aug 18, 2017 15:02
--- NOTE | 2017-08-18 15:50 | Occupational Therapy Eval ---
OT Evaluation-General/PLF Medical Diagnosis Admission Date Aug 17, 2017 at 06:00 Medical Diagnosis: right TKA Onset Date: Aug 17, 2017 Therapy Diagnosis Therapy Diagnosis: decr self care Height/Weight Height (Feet): 6 Height (Inches): 0.00 Weight (Pounds): 238 Weight (Ounces): 0.0 Precautions Precautions/Isolations: Standard Precautions Safety Interventions: None Weight Bear Status Weight Bearing Restriction: Weight Bearing/Tolerated Referral Physician: Freddy Lord Referral Reason: Evaluation/Treatment Medical History Pertinent Medical History: Hypothroidism, OA Additional Medical History L rotator cuff repair Current History Elective R TKA Reviewed History: Yes Social History Home: Single Level Current Living Status: Entry Into Home: Stairs Without Railing Steps Into Home: 2 ADL-Prior Level of Function ADL PLOF Comments Pt indicated that he has had no problems managing his basic self care needs. 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 Pain rated 5/10 in knee and he appeared relatively comfortable Appearance Alert, cooperative Mental Status/Objective Patient Orientation: Person, Place, Time, Situation Attachments: IV Current Upper Extremity ROM Grossly WFL bilat Upper Extremity Strength grossly WFL bilat ADL-Treatment ADL-Current Pt reported that he was able to get on/off tall toilet in room without using grab bar. He does not anticipate any problems getting on/off toilet at home. He was initially concerned about getting sock on R foot but put foot on floor and saw that he could reach sock without difficulty. Pt education modified technique for lower body dressing and for getting in/out of shower once he goes home. Pt verbalized understanding. Pt had no other concerns or questions about ADLs at home and no additional equipment needs identified for OT. pt left up in recliner, all needs met. Functional [place] Measure 0=Not Assessed/NA 4=Minimal Assistance 1=Total Assistance 5=Supervision or Setup 2=Maximal Assistance 6=Modified [place] 3=Moderate Assistance 7=Complete IndependenceIRFPAI Quality Coding Scale 6 Independent with activity with or without an assistive device 5 Patient requires set up or clean up by helper. Patient completes activity by themselves 4 Supervision or touching assist (CGA). [place] provide cues , steadying assist 3 The helper provides less than half the effort to complete the activity 2 The helper provides more than half the effort to complete the activity 1 Dependent. The helper does all the effort to complete an activity 7 Patient refused to complete or attempt activity 9 The patient did not perform the activity before the current illness or injury 88 Not attempted due to Medical conditions or safety concerns Education OT Patient Education: Modified ADL techniques, Purpose of tx/functional activities, Rehab process, Safety issues, Transfer techniques Teaching Recipient: Patient Teaching Methods: Discussion Response to Teaching: Verbalize Understanding OT Mcfp Goals Executive Creative Director Goals Time Frame: Aug 18, 2017 Additional Goals: 2-Verbalize Understanding (goal met) 1=Demonstrate adherence to instructed precautions during ADL tasks. 2=Patient will verbalize/demonstrate understanding of assistive devices/ modifications for ADL. 3=Patient will improve strength/tolerance for activity to enable patient to perform ADL's. OT Education/Plan Problem List/Assessment Assessment: Impaired Self-Care Skills Pt would benefit from skilled OT to increase his independence and safety in basic ADLs to allow him to safely return to his home and to decrease caregiver burden. Discharge Recommendations Plan/Recommendations: Discharge/Goals Met Treatment Plan/Plan of Care Treatment,Training & Education: Yes Patient would benefit from OT for education, treatment and training to promote independence in ADL's, mobility, safety and/or upper extremity function for ADL' s. Plan of Care: ADL Retraining Treatment Duration: Aug 18, 2017 Frequency: 1 time per week Estimated Hrs Per Day: .25 hour per day Agreement: Yes Rehab Potential: Good Time/GCodes Start Time: 15:20 Stop Time: 15:32 Total Time Billed (hr/min): 12 Billed Treatment Time visit, evaluation low intensity 12 minutes ANDRZEJ ESPITIA OT Aug 18, 2017 15:50
[2017-08-18 16:00] VITALS: BP 150/74
[2017-08-18 20:00] VITALS: BP 156/78
[2017-08-18] MEDS: ZOLPIDEM 5 MG (AMBIEN) TAB PO SCH (21:26)
[2017-08-19] VITALS (7 sets, daily range): BP systolic 126–157; BP diastolic 60–93
[2017-08-19] MEDS: ACETAMINOPHEN 325 MG TABLET/CAPLET (TYLENOL) PO PRN ×2 (04:48→19:43)
[2017-08-19] MEDS: MULTIVIT W/MINERALS TAB (THERAGRAN M) PO SCH (05:23)
[2017-08-19] MEDS: LEVOTHYROXINE 150 MCG (LEVOTHROID) TAB PO SCH (05:23)
--- NOTE | 2017-08-19 06:57 | Progress Note-Standard ---
Standard Progress Note Progress Notes/Assess & Plan Date Seen by Provider: Aug 19, 2017 Time Seen by Provider: 06:56 Progress/Assessment & Plan Post op check Patient comfortable radiographs--HW well positioned. no fractures RLE-- 2 plus DP pulse with brisk cap refill. Intact DF and PF of toes and ankle. Sensation intact to light touch distally s/p RTKA doing well mobilize as able Final Diagnosis No complaints Vital Signs Date Time Temp Pulse Resp B/P (MAP) Pulse Ox O2 Delivery O2 Flow Rate FiO2 08/19/17 06:51 18 08/19/17 05:55 100.5 08/19/17 05:40 100.2 08/19/17 05:33 18 08/19/17 04:48 101.2 08/19/17 04:25 101.1 88 18 126/62 (83) 94 Room Air 08/19/17 00:00 99.6 88 18 127/60 (82) 94 Room Air 08/18/17 21:40 18 08/18/17 21:35 20 08/18/17 20:00 99.4 73 20 156/78 (104) 96 Room Air 08/18/17 16:00 100.3 77 20 150/74 (99) 98 Room Air 08/18/17 11:28 98.9 72 24 159/71 (100) 92 Room Air 08/18/17 09:50 97.7 08/18/17 08:55 18 08/18/17 08:00 100.0 79 22 131/78 (95) 95 Room Air 08/18/17 07:00 18 I & O 08/19/17 07:00 Intake Total 2780 ml Balance 2780 ml RLE--incision with slight blood DC centrally o/w clean and dry No calf tenderness. Neg Maia's s/p RTKA progressing well PT/OT likely DC tomorrow EFRAIN JUAREZ MD Aug 19, 2017 06:57
[2017-08-19] MEDS ORDERED: morphine INJ 4 MG/ML 1 ML (VIAL/SYRINGE) IVP PRN (07:00)
--- NOTE | 2017-08-19 08:05 | Progress Note (SOAP) ---
Subjective Date Seen by Provider: Aug 19, 2017 Time Seen by Provider: 07:50 Subjective/Events-last exam patient voices no medical complaints. He reports he is rehabbing with the right knee. He is ambulating and every day appears to be a little better. He believes he possibly he'll be going home tomorrow. Objective Exam Vital Signs Date Time Temp Pulse Resp B/P (MAP) Pulse Ox O2 Delivery O2 Flow Rate FiO2 08/19/17 06:51 18 08/19/17 05:55 100.5 08/19/17 05:40 100.2 08/19/17 05:33 18 08/19/17 04:48 101.2 08/19/17 04:25 101.1 88 18 126/62 (83) 94 Room Air 08/19/17 00:00 99.6 88 18 127/60 (82) 94 Room Air 08/18/17 21:40 18 08/18/17 21:35 20 08/18/17 20:00 99.4 73 20 156/78 (104) 96 Room Air 08/18/17 16:00 100.3 77 20 150/74 (99) 98 Room Air 08/18/17 11:28 98.9 72 24 159/71 (100) 92 Room Air 08/18/17 09:50 97.7 08/18/17 08:55 18 I & O 08/19/17 07:00 Intake Total 2780 ml Balance 2780 ml Capillary Refill : General Appearance: No Apparent Distress Respiratory: Lungs Clear Cardiovascular: Regular Rate, Rhythm Assessment/Plan Assessment/Plan Assess & Plan/Chief Complaint 1. Status post right knee replacement -patient is under the care of Dr. Rodríguez 2. Hypothyroidism -Will ensure patient is started back on levothyroxine. -we'll also continue to monitor his blood pressure. -Thank you for consultation and we'll follow along with you. 08/18 levothyroxine restarted 08/19 patient tolerating levothyroxine. He voices no concerns today. 3. Isolated increased bp -suspect pain related -continue to monitor 08/19 blood pressure normal Clinical Quality Measures DVT/VTE Risk/Contraindication: Risk Factor Score Per Nursin RFS Level Per Nursing on Admit: 4+=Very High SARAH FREY MD Aug 19, 2017 08:05
[2017-08-19] MEDS: SENNA W/DOCUSATE (SENOKOT S) TABLET PO SCH ×2 (08:32→21:34)
[2017-08-19] MEDS: ENOXAPARIN 30 MG/0.3 ML (LOVENOX) SYR SC SCH ×2 (08:32→20:53)
[2017-08-19] MEDS: ASPIRIN E.C. 81 MG (ECOTRIN) TAB PO SCH (08:32)
--- NOTE | 2017-08-19 09:17 | Physical Therapy Daily Note ---
PT Daily Note-Current Subjective Patient is up ad ruben in room. No c/o. Pain Numeric Pain Scale: 5-Moderate Pain Location: Right Location Body Site: Knee Pain Description: Acute Mental Status Patient Orientation: Normal For Age Transfers Functional [place] Measure 0=Not Assessed/NA 4=Minimal Assistance 1=Total Assistance 5=Supervision or Setup 2=Maximal Assistance 6=Modified [place] 3=Moderate Assistance 7=Complete IndependenceIRFPAI Quality Coding Scale 6 Independent with activity with or without an assistive device 5 Patient requires set up or clean up by helper. Patient completes activity by themselves 4 Supervision or touching assist (CGA). [place] provide cues , steadying assist 3 The helper provides less than half the effort to complete the activity 2 The helper provides more than half the effort to complete the activity 1 Dependent. The helper does all the effort to complete an activity 7 Patient refused to complete or attempt activity 9 The patient did not perform the activity before the current illness or injury 88 Not attempted due to Medical conditions or safety concerns Transfers (B, C, W/C) (FIM): 7 Scootin Rollin Supine to/from Sit: 7 Sit to/from Stand: 7 Weight Bearing Right Lower Extremity: Right Weight Bearing/Tolerated Gait Training Gait (FIM): 6 Distance (FIM): 3=150 ft Distance: 500' Gait Level of Assist: 6 Gait Assistive Device: FWW antalgic/functional Stair Training Stair Training: Handrails/: 1 handrail, uses walker Stairs (FIM): 5 #of Steps: 4 Stairs: Pattern: Step to Level of Assist: 5 Exercises Supine Ex: Ankle pumps, Quad Set, Heel Slides Supine Reps: 15 Seated Therapy Exercises: Long arc quads, Chair press-ups Seated Reps: 15 Standing: Heel/toe raises Assessment Patient is progressing wit treatment plan. Plan dismissal to home tomorrow. PT instructed patient to perform exercises PRN and ambulate PRN in hallway. PT Short Term Goals Short Term Goals Time Frame: Aug 24, 2017 Gait (FIM): 5 Gait Distance Comment: 500' Gait Level of Assist: 5 Gait Assistive Device: FWW PT Plan Treatment/Plan Treatment Plan: Continue Plan of Care Treatment Plan: Bed Mobility, Education, Functional Activity Km, Functional Strength, Gait, Safety, Therapeutic Exercise, Transfers Treatment Duration: Aug 24, 2017 Frequency: 11 times per week Estimated Hrs Per Day: .25 hour per day (15-30') Patient and/or Family Agrees t: Yes Time/GCodes Time In: 830 Time Out: 855 Total Billed Treatment Time: 25 Total Billed Treatment 1 visit EX 15 min GT 10 min ALESHIA OBRIEN PT Aug 19, 2017 09:17
[2017-08-19] MEDS: oxyCODONE/APAP 5/325MG (PERCOCET 5) TABLET PO PRN ×3 (10:06→21:34)
--- NOTE | 2017-08-19 11:36 | Physical Therapy Daily Note ---
PT Daily Note-Current Subjective Patient agrees to PT. He is up ad ruben in room. Pain Numeric Pain Scale: 5-Moderate Pain Location: Right Location Body Site: Knee Pain Description: Acute Mental Status Patient Orientation: Normal For Age Transfers Functional [place] Measure 0=Not Assessed/NA 4=Minimal Assistance 1=Total Assistance 5=Supervision or Setup 2=Maximal Assistance 6=Modified [place] 3=Moderate Assistance 7=Complete IndependenceIRFPAI Quality Coding Scale 6 Independent with activity with or without an assistive device 5 Patient requires set up or clean up by helper. Patient completes activity by themselves 4 Supervision or touching assist (CGA). [place] provide cues , steadying assist 3 The helper provides less than half the effort to complete the activity 2 The helper provides more than half the effort to complete the activity 1 Dependent. The helper does all the effort to complete an activity 7 Patient refused to complete or attempt activity 9 The patient did not perform the activity before the current illness or injury 88 Not attempted due to Medical conditions or safety concerns Transfers (B, C, W/C) (FIM): 6 Scootin Supine to/from Sit: 6 Sit to/from Stand: 6 Weight Bearing Right Lower Extremity: Right Weight Bearing/Tolerated Exercises Supine Ex: Ankle pumps, Quad Set, Heel Slides, Straight leg raise Supine Reps: 20 (2 sets with AAROM with HS and SLR) Treatments CPM 0-90 degrees Assessment Patient tolerated treatment well and has no c/o. Plan dismissal in a.m. PT Short Term Goals Short Term Goals Time Frame: Aug 24, 2017 Gait (FIM): 5 Gait Distance Comment: 500' Gait Level of Assist: 5 Gait Assistive Device: FWW PT Plan Treatment/Plan Treatment Plan: Continue Plan of Care Treatment Plan: Bed Mobility, Education, Functional Activity Km, Functional Strength, Gait, Safety, Therapeutic Exercise, Transfers Treatment Duration: Aug 24, 2017 Frequency: 11 times per week Estimated Hrs Per Day: .25 hour per day (15-30') Patient and/or Family Agrees t: Yes Time/GCodes Time In: 1105 Time Out: 1128 Total Billed Treatment Time: 23 Total Billed Treatment 1 visit EX x 2 23 min ALESHIA OBRIEN PT Aug 19, 2017 11:36
[2017-08-19] MEDS: ZOLPIDEM 5 MG (AMBIEN) TAB PO SCH (21:34)
[2017-08-20] MEDS: LEVOTHYROXINE 150 MCG (LEVOTHROID) TAB PO SCH (05:50)
[2017-08-20] MEDS: MULTIVIT W/MINERALS TAB (THERAGRAN M) PO SCH (05:50)
[2017-08-20] MEDS: ENOXAPARIN 30 MG/0.3 ML (LOVENOX) SYR SC SCH (07:43)
[2017-08-20 08:00] VITALS: BP 125/80
[2017-08-20] MEDS: oxyCODONE/APAP 5/325MG (PERCOCET 5) TABLET PO PRN (08:35)
[2017-08-20] MEDS: SENNA W/DOCUSATE (SENOKOT S) TABLET PO SCH (08:35)
[2017-08-20] MEDS: ASPIRIN E.C. 81 MG (ECOTRIN) TAB PO SCH (08:35)
--- NOTE | 2017-08-20 10:06 | Progress Note-Standard ---
Standard Progress Note Progress Notes/Assess & Plan Date Seen by Provider: Aug 20, 2017 Time Seen by Provider: 10:05 Progress/Assessment & Plan Post op check Patient comfortable radiographs--HW well positioned. no fractures RLE-- 2 plus DP pulse with brisk cap refill. Intact DF and PF of toes and ankle. Sensation intact to light touch distally s/p RTKA doing well mobilize as able Final Diagnosis No complaints Vital Signs Date Time Temp Pulse Resp B/P (MAP) Pulse Ox O2 Delivery O2 Flow Rate FiO2 08/20/17 08:00 99.4 73 24 125/80 (95) 94 Room Air 08/19/17 23:13 99.4 73 18 148/74 (98) 93 Room Air 08/19/17 20:03 101.1 80 17 152/81 (104) 96 Room Air 08/19/17 19:43 101.1 08/19/17 16:43 100.9 81 18 154/93 (113) 96 Room Air 08/19/17 12:30 100.3 74 20 157/93 (114) 99 Room Air 08/19/17 10:40 100.5 I & O 08/20/17 07:00 Intake Total 2900 ml Balance 2900 ml Laboratory Tests Test 08/20/17 05:55 Range/Units Hemoglobin 12.4 L 13.3-17.7 G/DL Hematocrit 36 L 40-54 % RLE--dressing intact. No calf tenderness. Neg Maia's s/p RTKA doing well DC home EFRAIN JUAREZ MD Aug 20, 2017 10:06
--- NOTE | 2017-08-20 11:10 | Physical Therapy Daily Note ---
PT Daily Note-Current Subjective Pt reports he plans to discharge today. He understands home exercise program and voices he will perform daily. Pain Numeric Pain Scale: 7 Location: Right Location Body Site: Knee Pain Description: Sharp Mental Status Patient Orientation: Normal For Age Transfers Functional [place] Measure 0=Not Assessed/NA 4=Minimal Assistance 1=Total Assistance 5=Supervision or Setup 2=Maximal Assistance 6=Modified [place] 3=Moderate Assistance 7=Complete IndependenceIRFPAI Quality Coding Scale 6 Independent with activity with or without an assistive device 5 Patient requires set up or clean up by helper. Patient completes activity by themselves 4 Supervision or touching assist (CGA). [place] provide cues , steadying assist 3 The helper provides less than half the effort to complete the activity 2 The helper provides more than half the effort to complete the activity 1 Dependent. The helper does all the effort to complete an activity 7 Patient refused to complete or attempt activity 9 The patient did not perform the activity before the current illness or injury 88 Not attempted due to Medical conditions or safety concerns Transfers (B, C, W/C) (FIM): 6 Scootin Supine to/from Sit: 6 Sit to/from Stand: 6 slow and guarded due to pain. Uses the (L) leg to assist lifting the right leg into/out of bed Weight Bearing Right Lower Extremity: Right Weight Bearing/Tolerated Weight Bearing/Tolerated Gait Training Distance (FIM): 3=150 ft Distance: 250 Gait Level of Assist: 6 Gait Persons Needed: 1 Gait Assistive Device: FWW decreased stride length due to insufficient stance time on the right, limited by pain. Patient is not able to bear full wt through the right leg due to pain. Stair Training Stair Training: Handrails/: 2 handrails Stairs (FIM): 3 Stairs: Pattern: Step to Level of Assist: 6 Exercises Supine Ex: LE Protocol Supine Reps: 10 Assessment Current Status: Good Progress Pt mobility is safe for discharge to home. He lacks right knee strength and ROM and has impaired gait. Pt will benefit from continued therapy through home health and then outpatient services. PT Short Term Goals Short Term Goals Time Frame: Aug 24, 2017 Gait (FIM): 5 Gait Distance Comment: 500' Gait Level of Assist: 5 Gait Assistive Device: FWW PT Plan Problem List Problem List: Activity Tolerance, Gait, ROM Treatment/Plan Treatment Plan: Discontinue PT, goals met Treatment Plan: Bed Mobility, Education, Functional Activity Km, Functional Strength, Gait, Safety, Therapeutic Exercise, Transfers Treatment Duration: Aug 24, 2017 Frequency: 11 times per week Estimated Hrs Per Day: .25 hour per day (15-30') Patient and/or Family Agrees t: Yes Safety Risks/Education Patient Education: Gait Training, Steps, Issued Written HEP Teaching Recipient: Patient Teaching Methods: Demonstration, Discussion Response to Teaching: Verbalize Understanding Discharge Recommendations Therapy D/C Recommendations: Home w/ Family Support Equpiment Recommendations-D/C: Front Wheeled Walker Discharge Status/Home Program Discharged to home with instruction on home exercises Time/GCodes Time In: 830 Time Out: 855 Total Billed Treatment Time: 25 Total Billed Treatment visit, gait 10min, ex 15 min PARKER ERWIN PT Aug 20, 2017 11:10
--- NOTE | 2017-08-20 11:59 | DISCHARGE SUMMARY ---
DATE OF SERVICE: 08/20/2017 DIAGNOSES: 1. Right knee primary osteoarthritis. 2. Hypothyroidism. PROCEDURE: Right total knee arthroplasty. SUMMARY: The patient is a 51-year-old gentleman who underwent a right total knee arthroplasty without complications. Postoperatively, he did very well. At the time of discharge his wound was clean and dry. No calf tenderness. Negative Homans sign. He had attained independent status with physical therapy. Discharge medications are home medications, Percocet as needed for pain and aspirin. Activities are weightbearing as tolerated with assistive devices. Physical therapy has been arranged. FOLLOWUP: In three weeks. Job ID: [id number] DocumentID: [id number] Dictated Date: 08/20/2017 10:04:58 Die Repair Date: 08/20/2017 11:58:22 Dictated By: EFRAIN JUAREZ MD
== END 2017-08-20 11:01 | disposition home or self-care (01) | DRG 470 ==
LOC: SURGICAL 06:00 → SURG 06:01 → 4TH 10:15
PROVIDERS: ADMIT Orthopaedic Surgery; ATTEND Orthopaedic Surgery
PROC: 0SRC0J9 Replacement of Right Knee Joint with Synthetic Substitute, Cemented, Open Approach (ICD-10-PCS; principal; 2017-08-17 07:26)
DX: M17.11 Unilateral primary osteoarthritis, right knee (principal); E03.9 Hypothyroidism, unspecified; Z87.891 Personal history of nicotine dependence
CPT/HCPCS: 36415; 73560; 85014; 85018; 86850; 86900; 86901; 94664

== ENCOUNTER 2018-12-14 16:00 | Outpatient (CLI) | payer BC, OTHER ==
[~2018-12-14] VITALS: Ht 182.9 cm; Wt 108.0 kg
[~2018-12-14 16:00] MED LIST changes: +OXYC1TAB87 PO
== END 2018-12-14 16:26 | disposition home or self-care (01) ==
LOC: PREOP 16:00
PROVIDERS: ATTEND Surgery
DX: Z01.818 Encounter for other preprocedural examination (principal)

== ENCOUNTER 2018-12-18 08:09 | Day surgery (SDC) | payer BC, OTHER ==
[~2018-12-18] VITALS: Ht 182.9 cm; Wt 108.0 kg
[2018-12-18] MEDS ORDERED: LACTATED RINGERS 1,000 ML IV ONE (08:13)
--- OUTSIDE RECORDS SUMMARY | 2018-12-18 08:15 | XMS REPORT | Continuity of Care Document ---
Author Author [facility] Organization [facility] Address Unknown Phone Unavailable Care Team Providers Care Neurology Teacher Name Role Phone SARAH FREY MD PP Insurance Providers Payer Name Policy Number Subscriber Name Relationship [employer] [id number] Diana Nicole 01 Self / Same As Patient [id number] Diana Nicole 01 Self / Same As Patient Advance Directives Directive Response Recorded Date Advance Directives N 03/29/13 6:48pm Problems No Known Problems or Medical conditions. Social History History Response Recorded Date/Time Alcohol Use Occasionally Uses 03/29/13 6: 48pm Recreational Drug Use N 03/29/13 6:48pm Allergies, Adverse Reactions, Alerts Allergen Type Severity Reaction Last Updated No Known Drug Allergies 03/29/13 Medications Medication Dose Units Route Sig Qty Days Levothyroxine Sodium (Levothyroxine 125 Mcg Tab) 1 Each PO DAILY Hydrocodone Bit/Acetaminophen (Hydrocodon-Acetaminoph 7.5-500) 1 Each PO Response Recorded Date/Time Status not known Unknown Results No Known Relevant Diagnostic Tests, Laboratory Data and/or Discharge Summary. Encounters Encounter Location Date/Time Departed Emergency Room [facility] [place] 09/10 6:43pm
--- OUTSIDE RECORDS SUMMARY | 2018-12-18 08:16 | XMS REPORT | Continuity of Care Document ---
Author Organization Unknown Address Unknown Allergies Active Description Code Type Severity Reaction Onset Reported/Identified Relationship to Patient Clinical Status Yes No Known Drug Allergies [id number] Drug Allergy Unknown N/A 03/29/2013 Medications There is no data. Problems Date Dx Coded Attending Type Code Diagnosis Diagnosed By 03/29/2013 MARCELLA CASTELLON MD Ot 276.51 DEHYDRATION 03/29/2013 MARCELLA CASTELLON MD Ot 593.9 RENAL URETERAL DIS NOS 03/29/2013 MARCELLA CASTELLON MD Ot 729.82 CRAMP IN LIMB 08/11/2017 EFRAIN JUAREZ MD Ot M17.11 UNILATERAL PRIMARY OSTEOARTHRITIS, RIGHT 08/11/2017 EFRAIN JUAREZ MD Ot R53.83 OTHER FATIGUE 08/11/2017 EFRAIN JUAREZ MD Ot Z01.812 ENCOUNTER FOR PREPROCEDURAL LABORATORY E 08/11/2017 EFRAIN JUAREZ MD Ot Z01.818 ENCOUNTER FOR OTHER PREPROCEDURAL EXAMIN 08/18/2017 EFRAIN JUAREZ MD Ot E03.9 HYPOTHYROIDISM, UNSPECIFIED 08/18/2017 EFRAIN JUAREZ MD Ot M17.11 UNILATERAL PRIMARY OSTEOARTHRITIS, RIGHT 08/18/2017 EFRAIN JUAREZ MD Ot Z87.891 PERSONAL HISTORY OF NICOTINE DEPENDENCE 08/20/2017 EFRAIN JUAREZ MD Ot E03.9 HYPOTHYROIDISM, UNSPECIFIED 08/20/2017 EFRAIN JUAREZ MD Ot M17.11 UNILATERAL PRIMARY OSTEOARTHRITIS, RIGHT 08/20/2017 EFRAIN JUAREZ MD Ot Z87.891 PERSONAL HISTORY OF NICOTINE DEPENDENCE 12/13/2018 ABE PERKINS DO Ot Z01.818 ENCOUNTER FOR OTHER PREPROCEDURAL EXAMIN 12/14/2018 ABE PERKINS DO Ot Z01.818 ENCOUNTER FOR OTHER PREPROCEDURAL EXAMIN 12/14/2018 ABE PERKINS DO Ot Z01.818 ENCOUNTER FOR OTHER PREPROCEDURAL EXAMIN 12/15/2018 SANJANAJULIA DO ABE B Ot Z01.818 ENCOUNTER FOR OTHER PREPROCEDURAL EXAMIN Procedures Code Description Performed By Performed On [id number] REPLACE OF No RUBIO WITH TONY IBRAHIM CEM 08/17/2017 Results Test Result Range Complete blood count [...] urinalysis with reflex to culture NO NRG Blood type T Indirect antibody screen panel - 08/17/17 06:32 ABO+Rh group OP NRG Transfusion band number [id number] NRG Blood group antibody screen NEGATIVE NRG Whole blood hemoglobin and hematocrit panel - 08/18/17 06:09 Venous blood hemoglobin measurement (mass/volume) 11.8 g/dL 13.3-17.7 Blood hematocrit (volume fraction) 34 % 40-54 Whole blood hemoglobin and hematocrit panel - 08/19/17 07:26 Venous blood hemoglobin measurement (mass/volume) 11.2 g/dL 13.3-17.7 Blood hematocrit (volume fraction) 32 % 40-54 Whole blood hemoglobin and hematocrit panel - 08/20/17 05:55 Venous blood hemoglobin measurement (mass/volume) 12.4 g/dL 13.3-17.7 Blood hematocrit (volume fraction) 36 % 40-54 Encounters ACCT No. Visit Date/Time Discharge Status Pt. Type Provider Facility Loc./Unit Complaint [id number] 12/14/2018 16:00:00 12/14/2018 16:26:00 DIS Outpatient ABE PERKINS DO [facility] PREOP COLONOSCOPY [id number] 08/17/2017 06:00:00 08/20/2017 11:01:00 DIS Inpatient EFRAIN JUAREZ MD [facility] 4TH RIGHT KNEE OSTEOARTHRITIS [id number] 08/11/2017 15:30:00 08/11/2017 16:25:00 DIS Outpatient EFRAIN JUAREZ MD [facility] PREOP RIGHT KNEE OSTEOARTHRITIS [id number] 03/29/2013 18:43:00 03/29/2013 21:34:00 DIS Emergency RAVINDER HEBERT, MARCELLA Junior [facility] ER WEAKNESS,MUSCLE CRAMPS [id number] 12/18/2018 08:09:00 ACT Outpatient ABE PERKINS DO [facility] ENDO SCREENING
[2018-12-18 08:20] VITALS: BP 141/92
[2018-12-18] MEDS ORDERED: LACTATED RINGERS 1,000 ML IV PRN (08:30)
[2018-12-18] MEDS ORDERED: PROPOFOL INJECTION 50 ML IV ONE ×2 (09:17→09:50)
[2018-12-18] MEDS ORDERED: MIDAZOLAM 2 MG/2 ML (VERSED) VIAL ONE (09:17)
--- NOTE | 2018-12-18 09:26 | Progress Note-Pre Operative ---
Pre-Operative Progress Note H&P Reviewed The H&P was reviewed, patient examined and no changes noted. Time Seen by Provider: 09:24 Date H&P Reviewed: Dec 18, 2018 Time H&P Reviewed: 09:25 Pre-Operative Diagnosis: screening colonoscopy ABE PERKINS DO Dec 18, 2018 09:26
--- NOTE | 2018-12-18 10:19 | Progress Note-Post Operative ---
Post-Operative Progess Note Surgeon (s)/Furnace Puncher (s) Surgeon ABE PERKINS DO Furnace Puncher: none Pre-Operative Diagnosis screening colonoscopy Post-Operative Diagnosis Polyps Internal Hemorrhoids Procedure & Operative Findings Date of Procedure 12/18/18 Procedure Performed/Findings Colon with snare Colon with hot bx Anesthesia Type IV sedation by WELDING MACHINE OPERATOR ELECTRON BEAM Estimated Blood Loss Estimated blood loss (mL): scant Specimens/Packing Specimens Removed Cecal polyp bx x 3 pieces Transverse colon polyp descending colon polyp Sigmoid colon polyp x 2 Rectal polyps x 5 ABE PERKINS DO Dec 18, 2018 10:19
--- NOTE | 2018-12-18 10:21 | Endoscopy Discharge Instruct ---
Endo Procedure/Findings Findings 1.: Polyp 2.: Internal Hemorrhoids Discharge Instructions - Activity: You might feel a little sleepy until tomorrow. This is due to the medicine you received to relax you. Until tomorrow, you should: NOT drive a car, operate machinery or power tools. NOT drink any alcoholic beverages. NOT make any important decisions or sign importortant papers. Do not return to work until tomorrow, unless otherwise instructed. Resume previous activities tomorrow. Diet: Start by taking liquids. If you tolerate liquids, advance to solid food. make an appointment for one week. Instructions: 1.: Colonoscopy in 1 year Notify Physician - If you experience excessive bleeding, unusual abdominal pain, fever, or chest pain, contact your doctor immediately. Follow-Up: - I have received and understand the above instructions and will call my doctor if I have any further questions. Patient Signature Date Nurse Signature Other (Relationship) ABE PERKINS DO Dec 18, 2018 10:21
[2018-12-18 10:35] VITALS: BP 143/93
[2018-12-18 11:05] VITALS: BP 139/90
[2018-12-18 11:15] VITALS: BP 139/90
--- NOTE | 2018-12-18 11:30 | Anesthesia-General Post-Op ---
MAC Patient Condition Mental Status/LOC: Same as Preop Cardiovascular: Satisfactory Nausea/Vomiting: Absent Respiratory: Satisfactory Pain: Controlled Complications: Absent Post Op Complications Complications None Follow Up Care/Instructions Patient Instructions None needed. Anesthesiology Discharge Order Discharge Order Patient is doing well, no complaints, stable vital signs, no apparent adverse anesthesia problems. No complications reported per nursing. BRODIE DUKE CRNA Dec 18, 2018 11:30
--- NOTE | 2018-12-19 02:55 | OPERATIVE REPORT ---
DATE OF SERVICE: 12/18/2018 PREOPERATIVE DIAGNOSIS: Screening colonoscopy. POSTOPERATIVE DIAGNOSES: Colon polyps, internal hemorrhoids. PROCEDURE: 1. Colonoscopy with snare polypectomy. 2. Colonoscopy with hot biopsy. SURGEON: Luis Enrique Roberto DO. PLATE PAINTER: None. ANESTHESIA: IV sedation by the SHOEMAKER CUSTOM. SPECIMEN: 1. Cecal biopsy in 3 pieces. 2. Transverse colon polyp x1. 3. Descending colon polyp x1. 4. Sigmoid colon polyp x2. 5. Five rectal polyps. BLOOD LOSS: Scant. FLUIDS: Per anesthesia. POSTOPERATIVE CONDITION: Stable. INDICATION FOR PROCEDURE: The patient is a 52-year-old male who has never had a colonoscopy, needed one for screening. FINDINGS: The patient had a large flat polyp in the cecum that I was unable to completely remove. He also had a large transverse colon polyp that was round on a stalk and another one of these in the descending colon, then he had 2 flat polyps in the sigmoid colon and then 5 small rectal polyps all removed and sent to pathology. PROCEDURE NOTE: After informed consent was obtained, the patient was brought to the endoscopy suite, placed on the bed in left lateral decubitus position. He was administered IV sedation by the SHOEMAKER CUSTOM, then monitored the vitals the entire time, heart rate, blood pressure and pulse ox and the scope was inserted, pushed all the way to [address] in, noted a descending colon polyp. I elected to leave this, because it was too big to be able to remove it. Pushed pass this all the way to the cecum, took a picture of appendiceal orifice and noted the ileocecal valve and then just opposite the ileocecal valve was a large flat polyp right on the fold, unable to see all of the polyp and elected to do 3 hot biopsy to get a good specimen of this, did this and then slowly withdrew the scope insufflating, look circumferentially at the ponce looking at the cecum, up the ascending colon to the hepatic flexure, down the transverse colon, saw the large polyp, did a snare polypectomy, suctioned this up to the scope and then pulled the scope completely out. Then pushed the scope back in saw another large polyp in the descending colon. This one was able to suction up and then pulled down to the sigmoid, saw two more polyps, able to snare polypectomy of these and remove them and then in the rectum, retroflexed the rectal vault, saw some minimal internal hemorrhoids, but also saw 5 small rectal polyps. Able to snare all 5 of these and remove them and sent all of them to the pathology. He was recovered in endoscopy suite. Job ID: [id number] DocumentID: [id number] Dictated Date: 12/18/2018 19:00:32 Painter Set Date: 12/19/2018 02:54:36 Dictated By: LUIS ENRIQUE ROBERTO DO
== END 2018-12-18 11:15 | disposition home or self-care (01) ==
LOC: ENDO 08:09
PROVIDERS: ATTEND Surgery
DX: Z12.11 Encounter for screening for malignant neoplasm of colon (principal); D12.0 Benign neoplasm of cecum; D12.3 Benign neoplasm of transverse colon; D12.4 Benign neoplasm of descending colon; D12.5 Benign neoplasm of sigmoid colon; D12.8 Benign neoplasm of rectum; K64.8 Other hemorrhoids; E07.9 Disorder of thyroid, unspecified; Z87.891 Personal history of nicotine dependence; Z79.899 Other long term (current) drug therapy

== ENCOUNTER 2019-02-06 11:03 | Outpatient (CLI) | payer BC, OTHER ==
[~2019-02-06] VITALS: Ht 182.9 cm; Wt 108.0 kg
== END 2019-02-06 15:57 | disposition home or self-care (01) ==
LOC: PREOP 11:03
PROVIDERS: ATTEND Surgery
DX: Z01.818 Encounter for other preprocedural examination (principal)

== ENCOUNTER 2020-03-06 05:39 | Outpatient (RCR) | payer BC, OTHER ==
[~2020-03-06] VITALS: Ht 182.9 cm; Wt 109.1 kg
[~2020-03-06 05:39] MED LIST changes: +ACHD5005 PO
== END 2020-03-06 13:39 | disposition home or self-care (01) ==
LOC: PREOP 05:39
PROVIDERS: ATTEND Surgery
DX: Z01.812 Encounter for preprocedural laboratory examination (principal); Z20.828 Contact with and (suspected) exposure to other viral communicable diseases; Z86.010 Personal history of colon polyps
CPT/HCPCS: 87635

== ENCOUNTER 2020-03-10 07:49 | Day surgery (SDC) | payer BC, OTHER ==
[~2020-03-10] VITALS: Ht 182.9 cm; Wt 109.1 kg
[2020-03-10] MEDS ORDERED: LACTATED RINGERS 1,000 ML IV ONE (07:59)
[2020-03-10 08:10] VITALS: BP 129/89
--- OUTSIDE RECORDS SUMMARY | 2020-03-10 08:41 | XMS REPORT | Continuity of Care Document ---
Author Organization Unknown Address Unknown Phone Unavailable Allergies Active Description Code Type Severity Reaction Onset Reported/Identified Relationship to Patient Clinical Status Yes No Known Drug Allergies [id number] Drug Allergy Unknown N/A 03/29/2013 Medications There is no data. Problems Date Dx Coded Attending Type Code Diagnosis Diagnosed By 03/29/2013 MARCELLA CASTELLON MD, Ot 276.51 DEHYDRATION 03/29/2013 MARCELLA CASTELLON MD [...] NICOTINE DEPENDENCE 12/13/2018 ABE PERKINS DO Ot Z01.8 18 ENCOUNTER FOR OTHER PREPROCEDURAL EXAMIN 12/14/2018 ABE PERKINS DO Ot Z01.8 18 ENCOUNTER FOR OTHER PREPROCEDURAL EXAMIN 12/14/2018 ABE PERKINS DO Ot Z01.8 18 ENCOUNTER FOR OTHER PREPROCEDURAL EXAMIN 12/15/2018 MADDIE CHAUHAN ABE B Ot Z01.8 18 ENCOUNTER FOR OTHER PREPROCEDURAL EXAMIN 12/18/2018 MADDIE DO, ABE B Ot D12.0 BENIGN NEOPLASM OF CECUM 12/18/2018 MADDIE DO, ABE B Ot D12.3 BENIGN NEOPLASM OF TRANSVERSE COLON 12/18/2018 MADDIE DO, ABE B Ot D12.4 BENIGN NEOPLASM OF DESCENDING COLON 12/18/2018 MADDIE DO, ABE B Ot D12.5 BENIGN NEOPLASM OF SIGMOID COLON 12/18/2018 MADDIE DO, ABE B Ot D12.8 BENIGN NEOPLASM OF RECTUM 12/18/2018 MADDIE DO, ABE B Ot E07.9 DISORDER OF THYROID, UNSPECIFIED 12/18/2018 SANJANAJULIA DO, ABE B Ot K64.8 OTHER HEMORRHOIDS 12/18/2018 MADDIE DO, ABE B Ot Z12.1 1 ENCOUNTER FOR SCREENING FOR MALIGNANT NE 12/18/2018 SANJANAJULIA DO ABE B Ot Z79.8 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 12/18/2018 SANJANAJULIA DO ABE B Ot Z87.8 91 PERSONAL HISTORY OF NICOTINE DEPENDENCE 12/20/2018 MADDIE DO, ABE B Ot D12.0 BENIGN NEOPLASM OF CECUM 12/20/2018 MADDIE , ABE B Ot D12.3 BENIGN NEOPLASM OF TRANSVERSE COLON 12/20/2018 MADDIE DO, ABE B Ot D12.4 BENIGN NEOPLASM OF DESCENDING COLON 12/20/2018 MADDIE DO, ABE B Ot D12.5 BENIGN NEOPLASM OF SIGMOID COLON 12/20/2018 SANJANAJULIA CHAUHAN, ABE B Ot D12.8 BENIGN NEOPLASM OF RECTUM 12/20/2018 MADDIE CHAUHAN, ABE B Ot E07.9 DISORDER OF THYROID, UNSPECIFIED 12/20/2018 SANJANAJULIA , ABE B Ot K64.8 OTHER HEMORRHOIDS 12/20/2018 MADDIE CHAUHAN ABE B Ot Z12.1 1 ENCOUNTER FOR SCREENING FOR MALIGNANT NE 12/20/2018 MADDIE CHAUHAN ABE B Ot Z79.8 99 OTHER SENIOR LIVING (CURRENT) DRUG THERAPY 12/20/2018 SANJANAJULIA DO ABE B Ot Z87.8 91 PERSONAL HISTORY OF NICOTINE DEPENDENCE 02/06/2019 MADDIE CHAUHAN ABE B Ot Z01.8 18 ENCOUNTER FOR OTHER PREPROCEDURAL EXAMIN 02/08/2019 ABE PERKINS DO Ot Z01.8 18 ENCOUNTER FOR OTHER PREPROCEDURAL EXAMIN 02/16/2019 ABE PERKINS DO Ot D12.0 BENIGN NEOPLASM OF CECUM 02/16/2019 ABE PERKINS DO Ot Z87.8 91 PERSONAL HISTORY OF NICOTINE DEPENDENCE Procedures Code Description Performed By Per formed On 0ETH6P8 RE PLACE OF R KNEE JT WITH SYNTH SUB, LAURY 08/17/2017 [id number] EX CISION OF ILEUM, OPEN APPROACH 02/14/2019 [id number] EX CISION OF RIGHT LARGE INTESTINE, OPEN 02/14/2019 [id number] RE SECTION OF APPENDIX, OPEN APPROACH 02/14/2019 Results Test Result Range Complete blood count (CBC) with automate d white blood cell (WBC) differential - 08/11/17 16:00 Blood leukocytes automated count (number/volume) 6.6 10*3/uL 4.3-11.0 Blood erythrocytes automated count (number/volume) 4.61 10*6/uL 4.35-5.85 Venous blood hemoglobin measurement (mass/volume) 14.2 g/dL 13.3-17.7 Blood hematocrit (volume fraction) 40 % 40-54 Automated erythrocyte mean corpuscular volume 87 [ foz_us] 80-99 Automated erythrocyte mean corpuscular h emoglobin (mass per erythrocyte) 31 pg 25-34 Automated erythrocyte mean corpuscular h emoglobin concentration measurement (mass/volume) 35 g/dL 32-36 Automated erythrocyte distribution width ratio 12. 9 % 10.0- 14.5 Automated blood platelet count (count/volume) 206 10*3/uL [...] 10*3 1.0-4.0 Blood monocytes automated count (number/volume) 0. 5 10*3 0.0-1.0 Automated eosinophil count 0.2 10*3/uL 0 .0-0.3 Automated blood basophil count (count/volume) 0.0 10*3/uL 0.0-0.1 PT panel in platelet poor plasma by coag ulation assay - 08/11/17 16:00 Prothrombin time (PT) in platelet poor plasma by coagu lation assay 13.0 s 12.2-14.7 INR in platelet poor plasma or blood by coagulation as say 1.0 0.8-1.4 Comprehensive metabolic panel - 08/11/17 16:00 Serum or plasma sodium measurement (moles/volume) 140 mmol/L 135-145 Serum or plasma potassium measurement (moles/volume) 3.8 mmol/L 3.6-5.0 Serum or plasma chloride measurement (moles/volume) 104 mmol/L 98-107 Carbon dioxide 28 mmol/L 21-32 Serum or plasma anion gap determination (moles/volume) 8 mmol/L 5-14 Serum or plasma urea nitrogen measurement (mass/volume ) 12 mg/dL 7-18 Serum or plasma creatinine measurement (mass/volume) 0.86 mg/dL 0.60-1.30 Serum or plasma urea nitrogen/creatinine mass ratio 14 NRG Serum or plasma creatinine measurement w ith calculation of estimated glomerular filtration rate > NRG Serum or plasma glucose measurement (mass/volume) 100 mg/dL 70-105 Serum or plasma calcium measurement (mass/volume) 9.0 mg/dL 8.5-10.1 Serum or plasma total bilirubin measurement (mass/volu me) 0.4 mg/dL 0.1-1.0 Serum or plasma alkaline phosphatase sol surement (enzymatic activity/volume) 85 U/L 40-136 Serum or plasma aspartate aminotransfera se measurement (enzymatic activity/volume) 17 U/L 5-34 Serum or plasma alanine aminotransferase measurement (enzymatic activity/volume) 16 U/L 0-55 Serum or plasma protein measurement (mass/volume) 7.3 g/dL 6.4-8.2 Serum or plasma albumin measurement (mass/volume) 4.3 g/dL 3.2-4.5 Erythrocyte sedimentation rate by yancy gren method - 08/11/17 16:00 Erythrocyte sedimentation rate by westergren method 5 mm 0- 30 Blood type T Indirect antibody screen pa leanne - 08/11/17 16:00 ABO+Rh group OP NRG Blood group antibody screen NEGATIVE NR G Methicillin resistant Staphylococcus aur eus (MRSA) screening culture - 08/11/17 16:00 Methicillin resistant Staphylococcus aureus (MRSA) scr eening culture NEG NRG Complete urinalysis with reflex to cultu re - 08/11/17 16:15 Urine color determination YELLOW NRG Urine clarity determination CLEAR NR G Urine pH measurement by test strip 5 5-9 Specific gravity of urine by test strip 1.025 1.016-1.022 Urine protein assay by test strip, semi-quantitative NEGATIVE NEGATIVE Urine glucose detection by automated test strip NE GATIVE NEGATIVE Erythrocytes detection in urine sediment by light micr oscopy NEGATIVE NEGATIVE Urine ketones detection by automated test strip NE GATIVE NEGATIVE Urine nitrite detection by test strip NEGATIVE NEGATIVE Urine total bilirubin detection by test strip NEGA TIVE NEGATIVE Urine urobilinogen measurement by automated test strip (mass/volume) NORMAL NORMAL Urine leukocyte esterase detection by dipstick NEG ATIVE NEGATIVE Automated urine sediment erythrocyte cou nt by microscopy (number/high power field) NONE NRG Automated urine sediment leukocyte count by microscopy (number/high power field) NONE NRG Bacteria detection in urine sediment by light microsco py NONE NRG Squamous epithelial cells detection in u rine sediment by light microscopy RARE NRG Crystals detection in urine sediment by light microsco py NONE NRG Casts detection in urine sediment by light microscopy NONE NRG Mucus detection in urine sediment by light microscopy NEGATIVE NRG Complete urinalysis with reflex to culture NO NRG Blood type T Indirect antibody screen [facility] 08/17/17 06:32 ABO+Rh group OP NRG Transfusion band number [id number] NRG Blood group antibody screen NEGATIVE NR G Whole blood hemoglobin and hematocrit [facility] 08/18/17 06:09 Venous blood hemoglobin measurement (mass/volume) 11.8 g/dL 13.3-17.7 Blood hematocrit (volume fraction) 34 % 40-54 Whole blood hemoglobin and hematocrit [facility] 08/19/17 07:26 Venous blood hemoglobin measurement (mass/volume) 11.2 g/dL 13.3-17.7 Blood hematocrit (volume fraction) 32 % 40-54 Whole blood hemoglobin and hematocrit [facility] 08/20/17 05:55 Venous blood hemoglobin measurement (mass/volume) 12.4 g/dL 13.3-17.7 Blood hematocrit (volume fraction) 36 % 40-54 Blood type T Indirect antibody screen [facility] leanne - 02/14/19 06:43 WRISTBAND NUMBER [id number] NRG ABO+Rh group OP NRG Blood group antibody screen NEGATIVE NR G Complete blood count (CBC) with automate d white blood cell (WBC) differential - 02/14/19 06:43 Blood leukocytes automated count (number/volume) 6.2 10*3/uL 4.3-11.0 Blood erythrocytes automated count (number/volume) 5.03 10*6/uL 4.35-5.85 Venous blood hemoglobin measurement (mass/volume) 15.4 g/dL 13.3-17.7 Blood hematocrit (volume fraction) 44 % 40-54 Automated erythrocyte mean corpuscular volume 88 [ foz_us] 80-99 Automated erythrocyte mean corpuscular h emoglobin (mass per erythrocyte) 31 pg 25-34 Automated erythrocyte mean corpuscular h emoglobin concentration measurement (mass/volume) 35 g/dL 32-36 Automated erythrocyte distribution width ratio 13. 3 % 10.0- 14.5 Automated blood platelet count (count/volume) 220 10*3/uL 130-400 Automated blood platelet mean volume measurement 10.9 [foz_us] 7.4-10.4 Automated blood neutrophils/100 leukocytes 55 % 42-75 Automated blood lymphocytes/100 leukocytes 32 % 12-44 Blood monocytes/100 leukocytes 9 % 0-12 Automated blood eosinophils/100 leukocytes 3 % 0-10 Automated blood basophils/100 leukocytes 1 % 0-10 Blood neutrophils automated count (number/volume) 3.5 10*3 1.8-7.8 Blood lymphocytes automated count (number/volume) 2.0 10*3 1.0-4.0 Blood monocytes automated count (number/volume) 0. 5 10*3 0.0-1.0 Automated eosinophil count 0.2 10*3/uL 0 .0-0.3 Automated blood basophil count (count/volume) 0.0 10*3/uL 0.0-0.1 Methicillin resistant Staphylococcus aur eus (MRSA) screening culture - 02/14/19 06:43 Methicillin resistant Staphylococcus aureus (MRSA) scr eening culture NEG NRG Complete blood count (CBC) with automate d white blood cell (WBC) differential - 02/15/19 05:39 Blood leukocytes automated count (number/volume) 15.5 10*3/uL 4.3-11.0 Blood erythrocytes automated count (number/volume) 4.42 10*6/uL 4.35-5.85 Venous blood hemoglobin measurement (mass/volume) 13.4 g/dL 13.3-17.7 Blood hematocrit (volume fraction) 39 % 40-54 Automated erythrocyte mean corpuscular volume 89 [ foz_us] 80-99 Automated erythrocyte mean corpuscular h emoglobin (mass per erythrocyte) 30 pg 25-34 Automated erythrocyte mean corpuscular h emoglobin concentration measurement (mass/volume) 34 g/dL 32-36 Automated erythrocyte distribution width ratio 13. 4 % 10.0- 14.5 Automated blood platelet count (count/volume) 206 10*3/uL 130-400 Automated blood platelet mean volume measurement 10.9 [foz_us] 7.4-10.4 Automated blood neutrophils/100 leukocytes 84 % 42-75 Automated blood lymphocytes/100 leukocytes 11 % 12-44 Blood monocytes/100 leukocytes 6 % 0-12 Automated blood eosinophils/100 leukocytes 0 % 0-10 Automated blood basophils/100 leukocytes 0 % 0-10 Blood neutrophils automated count (number/volume) 13.0 10*3 1.8-7.8 Blood lymphocytes automated count (number/volume) 1.7 10*3 1.0-4.0 Blood monocytes automated count (number/volume) 0. 9 10*3 0.0-1.0 Automated eosinophil count 0.0 10*3/uL 0 .0-0.3 Automated blood basophil count (count/volume) 0.0 10*3/uL 0.0-0.1 Comprehensive metabolic panel - 02/15/19 05:39 Serum or plasma sodium measurement (moles/volume) 136 mmol/L 135-145 Serum or plasma potassium measurement (moles/volume) 4.3 mmol/L 3.6-5.0 Serum or plasma chloride measurement (moles/volume) 105 mmol/L 98-107 Carbon dioxide 20 mmol/L 21-32 Serum or plasma anion gap determination (moles/volume) 11 mmol/L 5-14 Serum or plasma urea nitrogen measurement (mass/volume ) 14 mg/dL 7-18 Serum or plasma creatinine measurement (mass/volume) 0.96 mg/dL 0.60-1.30 Serum or plasma urea nitrogen/creatinine mass ratio 15 NRG Serum or plasma creatinine measurement w ith calculation of estimated glomerular filtration rate > NRG Serum or plasma glucose measurement (mass/volume) 158 mg/dL 70-105 Serum or plasma calcium measurement (mass/volume) 8.9 mg/dL 8.5-10.1 Serum or plasma total bilirubin measurement (mass/volu me) 0.6 mg/dL 0.1-1.0 Serum or plasma alkaline phosphatase sol surement (enzymatic activity/volume) 70 U/L 40-136 Serum or plasma aspartate aminotransfera se measurement (enzymatic activity/volume) 20 U/L 5-34 Serum or plasma alanine aminotransferase measurement (enzymatic activity/volume) 25 U/L 0-55 Serum or plasma protein measurement (mass/volume) 6.3 g/dL 6.4-8.2 Serum or plasma albumin measurement (mass/volume) 3.8 g/dL 3.2-4.5 CALCIUM CORRECTED 9.1 mg/dL 8.5-10.1 Coronavirus SARS-CoV-2 SO 2018 - 0 08:00 Coronavirus Ab [Units/volume] in Serum Negative Negative Encounters ACCT No. Visit Date/Time Discharge Status Pt. 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 [id number] 02/06/2019 11:03:00 019 15:57:00 DIS Outpatient ABE PERKINS DO [facility] PREOP TUBULOVILLUS ADENOMA [id number] 12/18/2018 08:09:00 019 11:15:00 DIS Outpatient ABE PERKINS DO [facility] ENDO SCREENING [id number] 12/14/2018 16:00:00 019 16:26:00 DIS Outpatient ABE PERKINS DO [facility] PREOP COLONOSCOPY [id number] 08/17/2017 06:00:00 017 11:01:00 DIS Inpatient EFRAIN JUAREZ MD [facility] 4TH RIGHT KNEE OSTEOARTHRIT IS [id number] 08/11/2017 15:30:00 017 16:25:00 DIS Outpatient EFRAIN JUAREZ MD [facility] PREOP RIGHT KNEE OSTEOARTHRI TIS [id number] 03/29/2013 18:43:00 013 21:34:00 DIS Emergency RAVINDER HEBERT, MARCELLA Junior [facility] ER WEAKNESS,MUSCLE CRAMPS [id number] 03/10/2020 10:30:00 P EN Preadmit ABE PERKINS DO [facility] ENDO HX POLYPS
--- NOTE | 2020-03-10 09:30 | Progress Note-Pre Operative ---
Pre-Operative Progress Note H&P Reviewed The H&P was reviewed, patient examined and no changes noted. Time Seen by Provider: 09:29 Date H&P Reviewed: Mar 10, 2020 Time H&P Reviewed: 09:28 Pre-Operative Diagnosis: Hx of polyps ABE PERKINS DO Mar 10, 2020 09:30
[2020-03-10] MEDS ORDERED: PROPOFOL INJECTION 50 ML IV ONE ×2 (09:31→09:55)
[2020-03-10] MEDS ORDERED: MIDAZOLAM 2 MG/2 ML (VERSED) VIAL ONE (09:32)
[2020-03-10] MEDS ORDERED: LACTATED RINGERS 1,000 ML IV STA (09:56)
[2020-03-10 10:15] VITALS: BP 137/85
--- NOTE | 2020-03-10 10:16 | Progress Note-Post Operative ---
Post-Operative Progess Note Surgeon (s)/Polymerization Oven Operator (s) Surgeon ABE PERKINS DO Polymerization Oven Operator: none Pre-Operative Diagnosis Hx of polyps Post-Operative Diagnosis Sigmoid polyp int hemorrhoids Procedure & Operative Findings Date of Procedure 03/10/20 Procedure Performed/Findings colon with hot bx Anesthesia Type IV sedation by PROMOTIONS COORDINATOR Estimated Blood Loss Estimated blood loss (mL): scant Specimens/Packing Specimens Removed sigmoid polyp bx ABE PERKINS DO Mar 10, 2020 10:16
--- NOTE | 2020-03-10 10:17 | Endoscopy Discharge Instruct ---
Endo Procedure/Findings Findings 1.: Polyp 2.: Internal Hemorrhoids Discharge Instructions - Activity: You might feel a little sleepy until tomorrow. This is due to the medicine you received to relax you. Until tomorrow, you should: NOT drive a car, operate machinery or power tools. NOT drink any alcoholic beverages. NOT make any important decisions or sign importortant papers. Do not return to work until tomorrow, unless otherwise instructed. Resume previous activities tomorrow. Diet: Start by taking liquids. If you tolerate liquids, advance to solid food. make an appointment for one week 1.: Colonscopy in 5 years Notify Physician - If you experience excessive bleeding, unusual abdominal pain, fever, or chest pain, contact your doctor immediately. ABE PERKINS DO Mar 10, 2020 10:17
[2020-03-10 10:20] VITALS: BP 147/87
[2020-03-10 10:25] VITALS: BP 140/87
[2020-03-10 10:55] VITALS: BP 134/88
--- NOTE | 2020-03-10 11:56 | Anesthesia-General Post-Op ---
MAC Patient Condition Mental Status/LOC: Same as Preop Cardiovascular: Satisfactory Nausea/Vomiting: Absent Respiratory: Satisfactory Pain: Controlled Complications: Absent Post Op Complications Complications None Follow Up Care/Instructions Patient Instructions None needed. Anesthesiology Discharge Order Discharge Order Patient is doing well, no complaints, stable vital signs, no apparent adverse anesthesia problems. No complications reported per nursing. BRODIE DUKE CRNA Mar 10, 2020 11:56
--- NOTE | 2020-03-11 03:19 | OPERATIVE REPORT ---
DATE OF SERVICE: PREOPERATIVE DIAGNOSIS: History of colon polyps. POSTOPERATIVE DIAGNOSES: Colon polyp, internal hemorrhoids. PROCEDURE: Colonoscopy with hot biopsy. SURGEON: Luis Enrique Roberto DO SENIOR FIREWALL ENGINEER: None. ANESTHESIA: IV sedation by the SHEATHER. SPECIMEN: Polyp from the sigmoid colon. BLOOD LOSS: Scant. FLUIDS: Per anesthesia. POSTOPERATIVE CONDITION: Stable. INDICATION FOR PROCEDURE: The patient is a 54-year-old male, who had a very large polyp that required a colon resection and he needed a followup for other polyps. FINDINGS: The patient had a small polyp in the sigmoid colon. He had some internal hemorrhoids. No other obvious pathology. PROCEDURE NOTE: After informed consent was obtained, the patient was brought to the endoscopy suite, placed in bed in the left lateral decubitus position. He was administered IV sedation by the SHEATHER, who then monitored his vitals the entire time, heart rate, blood pressure and pulse ox. The scope was then inserted, pushed all the way to about 130 cm, able to get to the anastomosis between the large intestine and small intestine, took a picture of the small intestine and then slowly withdrew the scope insufflating the circumferential ponce looking at the remainder of the ascending colon to the hepatic flexure down the transverse colon to the splenic flexure, into the descending colon and into the sigmoid. In the sigmoid, saw very small flat polyp, elected to do a hot biopsy of this, removed it and then continued down into the rectum, retroflexed in the rectal vault, saw some minimal internal hemorrhoids, took a picture and then removed the scope. The patient tolerated the procedure and was recovered in endoscopy suite. Job ID: [id number] DocumentID: [id number] Dictated Date: 03/10/2020 16:53:58 Flight Mechanic Date: 03/11/2020 03:19:13 Dictated By: LUIS ENRIQUE ROBERTO DO
== END 2020-03-10 11:05 | disposition home or self-care (01) ==
LOC: ENDO 07:49
PROVIDERS: ATTEND Surgery
DX: Z12.11 Encounter for screening for malignant neoplasm of colon (principal); K63.5 Polyp of colon; K64.8 Other hemorrhoids; E07.9 Disorder of thyroid, unspecified; Z86.010 Personal history of colon polyps; Z79.890 Hormone replacement therapy; Z87.891 Personal history of nicotine dependence
CPT/HCPCS: 88305